=== PATIENT | male | born 1945 | race Caucasian/White ===

== ENCOUNTER 2020-08-02 10:06 | Inpatient (IN) | payer MEDICARE ==
[~2020-08-02] VITALS: Ht 167.6 cm; Wt 70.3 kg
--- NOTE | 2020-08-02 10:30 | NUR ---
pt sent here from his ortho appt this morning. his left leg +4 none pitting edema to his toes. pt stated this started 2wks ago and he has had u/s, mri and other tests completed but no one knows what is going on. pt's leg is warm/hot to touch in various places with a healing abraison and burn. pt stated that he got these after his leg started swelling. pt stated this has never happened before.
[2020-08-02 11:19] VITALS: BP 106/44
[2020-08-02 11:39] LABS: BASOPHILS % (AUTO) 0.8 % (0.0-2.0); EOSINOPHILS % (AUTO) 0.7 % (0.0-3.0); HEMATOCRIT 32.4 % (42.0-52.0); HEMOGLOBIN 9.8 G/DL (14.2-18.0); LYMPHOCYTES % (AUTO) 3.6 % (20.0-45.0); MEAN CORPUSCULAR VOLUME 106 FL (80-99); MONOCYTES % (AUTO) 14.7 % (1.0-10.0); NEUTROPHILS % (AUTO) 80.1 % (45.0-75.0); PLATELET COUNT 384 K/UL (150-450); RED BLOOD COUNT 3.05 M/UL (4.70-6.10); RED CELL DISTRIBUTION WIDTH 15.1 % (11.6-14.8); WHITE BLOOD COUNT 9.5 K/UL (4.8-10.8)
[2020-08-02] MEDS ORDERED: Vancomycin 1 GM in NS 275 ML IVPB ONE (11:45)
[2020-08-02] MEDS ORDERED: Cefepime HCl 2 GM in D5W 55 ML IVPB ONE (11:45)
[2020-08-02 11:52] LABS: ANION GAP 7 mmol/L (5-15); BLOOD UREA NITROGEN 15 mg/dL (7-18); CALCIUM 9.4 MG/DL (8.5-10.1); CARBON DIOXIDE 30 MMOL/L (21-32); CHLORIDE 105 MMOL/L (98-107); CREATININE 0.9 MG/DL (0.55-1.30); POTASSIUM 4.5 MMOL/L (3.5-5.1); SODIUM 142 MMOL/L (136-145)
[2020-08-02] MEDS ORDERED: amicar (11:54)
[2020-08-02] MEDS ORDERED: ZINC50 M2 ORAL (11:54)
[2020-08-02] MEDS ORDERED: ASCORBIC ACID500 MG ORAL (11:54)
[2020-08-02] MEDS ORDERED: CYMBALTA30 MG ORAL (11:54)
[2020-08-02] MEDS ORDERED: HYDROCODON-ACE1 EA19 PO (11:54)
[2020-08-02] MEDS ORDERED: ALPHA LIPOIC A300 MG PO (11:54)
[2020-08-02] MEDS ORDERED: METHYLPREDNISOLONE (11:54)
[2020-08-02 12:03] LABS: ALANINE AMINOTRANSFERASE 16 U/L (12-78); ALBUMIN 2.2 G/DL (3.4-5.0); ALBUMIN/GLOBULIN RATIO 0.7 (1.0-2.7); ALKALINE PHOSPHATASE 64 U/L (46-116); ASPARTATE AMINO TRANSFERASE 23 U/L (15-37); BILIRUBIN,TOTAL 0.6 MG/DL (0.2-1.0)
--- NOTE | 2020-08-02 12:36 | Emergency Room Report ---
History of Present Illness General Chief Complaint: Edema Source: Patient Present Illness HPI Disclaimer: Please note that this report is being documented using [employer] technology. This can lead to erroneous entry secondary to incorrect interpretation by the dictating instrument. HPI: 75-year-old male history of HHT, lymphoma, presents for left lower extremity pain and swelling. He states this has been gradually worsening over the past 2 weeks. He was initially treated for gout, but it did not improve, he then had an ultrasound which ruled out DVT, this week he had an MRI of his leg. The result is unknown however he was seen by orthopedics today who suspected cellulitis and sent patient to the ER. Patient denies any fever. Does express left lower extremity pain that is worse with movement and palpation. No history of cellulitis. 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 Patient History Reviewed Nursing Documentation: PMH: Agreed; PSxH: Agreed Nursing Documentation-PMH Past Medical History: No History, Except For Hx COPD: No - AVM Hx Cancer: Yes - non-hodgking lymphoma Hx Dialysis: No - weak bladder Review of Systems All Other Systems: negative except mentioned in HPI Physical Exam Vital Signs Date Time Temp Pulse Resp B/P (MAP) Pulse Ox O2 Delivery O2 Flow Rate FiO2 08/02/20 10:28 99.7 106 23 106/44 (64) 98 Sp02 EP Interpretation: reviewed, normal General Appearance: well appearing, no apparent distress Head: normocephalic, atraumatic Eyes: bilateral eye PERRL, bilateral eye EOMI ENT: hearing grossly normal, moist mucus membranes Neck: full range of motion, supple Respiratory: lungs clear, normal breath sounds, no rhonchi, no respiratory distress, no retraction, no wheezing Cardiovascular #1: normal peripheral pulses, regular rate, rhythm, no murmur Gastrointestinal: non tender, soft, non-distended, no guarding Musculoskeletal: other - Left lower extremity swollen, erythematous up to the thigh, warm, 2+ pulses palpated bilaterally. Neurologic: alert, oriented x3, no focal defects Skin: normal color, warm/dry Medical Decision Making Diagnostic Impression: Primary Impression: Cellulitis of leg, left ER Course MDM: Patient presented for cellulitis of the left lower extremity. Less likely DVT as he had a negative ultrasound this week. In the ER he was given broad- spectrum antibiotics. Will require admission to the medical floor. Family was updated. Clinical course-IV, cardiac monitoring pulse oximetry. IV antibiotics given. Laboratory studies were sent. Patient was arranged for admission to the medical floor. Labs - Laboratory Tests Test 08/02/20 11:00 White Blood Count 9.5 K/UL (4.8-10.8) Red Blood Count 3.05 M/UL (4.70-6.10) L Hemoglobin 9.8 G/DL (14.2-18.0) L Hematocrit 32.4 % (42.0-52.0) L Mean Corpuscular Volume 106 FL (80-99) H Mean Corpuscular Hemoglobin 32.2 PG (27.0-31.0) H Mean Corpuscular Hemoglobin Concent 30.3 G/DL (32.0-36.0) L Red Cell Distribution Width 15.1 % (11.6-14.8) H Platelet Count 384 K/UL (150-450) Mean Platelet Volume 7.0 FL (6.5-10.1) Neutrophils (%) (Auto) 80.1 % (45.0-75.0) H Lymphocytes (%) (Auto) 3.6 % (20.0-45.0) L Monocytes (%) (Auto) 14.7 % (1.0-10.0) H Eosinophils (%) (Auto) 0.7 % (0.0-3.0) Basophils (%) (Auto) 0.8 % (0.0-2.0) Sodium Level 142 MMOL/L (136-145) Potassium Level 4.5 MMOL/L (3.5-5.1) Chloride Level 105 MMOL/L (98-107) Carbon Dioxide Level 30 MMOL/L (21-32) Anion Gap 7 mmol/L (5-15) Blood Urea Nitrogen 15 mg/dL (7-18) Creatinine 0.9 MG/DL (0.55-1.30) Estimated Glomerular Filtration Rate > 60 mL/min (>60) Glucose Level 121 MG/DL (74-106) H Lactic Acid Level 1.30 mmol/L (0.4-2.0) Calcium Level 9.4 MG/DL (8.5-10.1) Total Bilirubin 0.6 MG/DL (0.2-1.0) Aspartate Amino Transferase (AST) 23 U/L (15-37) Alanine Aminotransferase (ALT) 16 U/L (12-78) Alkaline Phosphatase 64 U/L (46-116) Troponin I 0.006 ng/mL (0.000-0.056) Pro-B-Type Natriuretic Peptide 761 pg/mL (0-125) H Total Protein 5.5 G/DL (6.4-8.2) L Albumin 2.2 G/DL (3.4-5.0) L Globulin 3.3 g/dL Albumin/Globulin Ratio 0.7 (1.0-2.7) L EKG Diagnostic Results Rate: normal Rhythm: NSR ST Segments: no acute changes Chest X-Ray Diagnostic Results Chest X-Ray Diagnostic Results : Chest X-Ray Ordered: Yes # of Views/Limited/Complete: 1 View Indication: Shortness of Breath EP Interpretation: Yes Interpretation: no consolidation, no effusion, no pneumothorax Impression: No acute disease Electronically Signed by: Miko Ragland MD Last Vital Signs Date Time Temp Pulse Resp B/P (MAP) Pulse Ox O2 Delivery O2 Flow Rate FiO2 08/02/20 11:19 99.7 23 106/44 98 08/02/20 11:16 106 Disposition: ADMITTED INPATIENT Condition: Serious Referrals: NON PHYSICIAN (PCP) Miko Ragland M.D. Aug 02, 2020 12:36
--- NOTE | 2020-08-02 12:54 | Diagnostic Imaging Report ---
Procedure: XRAY Chest 1v Reason for study: Reason For Exam: SOB Comparison films: None. FINDINGS: A single one view chest is obtained. Vascularity is normal. The lung arredondo are clear bilaterally. Cardiac and mediastinal silhouette are within normal limits. CP angles are sharp. Some surgical clips noted in the lower neck/thoracic inlet region. IMPRESSION: NO ACUTE CARDIOPULMONARY DISEASE.
[2020-08-02 13:12] VITALS: BP 109/51
--- NOTE | 2020-08-02 14:22 | NUR ---
ED Nurse Note:pt eating lunch in no noted distress sitting up on the side of the bed.
--- NOTE | 2020-08-02 14:22 | NUR ---
ED Nurse Note:wheeled pt to the bathroom, pt tolerated with x1 assist
--- NOTE | 2020-08-02 15:03 | NUR ---
ER DISCHARGE NOTE: pt being transported to his room via wheelchair with his belongings and belongings sheet.
--- NOTE | 2020-08-02 15:10 | NUR ---
NURSE NOTES: Patient was admitted to room 408-1 via rney. Pt a/o x 4. No SOB noted. Left leg was swollen. Lt AC IV access is patent. Unit orientation was given. Provided call light. Bed in lowest position, call light within reach. Will continue to monitor.
[2020-08-02 15:40] VITALS: BP 97/63
--- NOTE | 2020-08-02 17:32 | History & Physical ---
History and Physical History & Physicial job# [id number] Martir Ross MD Aug 02, 2020 17:32
--- NOTE | 2020-08-02 17:55 | NUR ---
NURSE NOTES: Dr. Ross ordered admission order. 1. Full code 2. Regular diet 3. Rocephin 1gm q24 IVPB start tomorrow 4. Vanco per pharmacy 5. Heparin 5000 units q12 SQ 6. Zolpidem 5mg QHS PRN for insomnia 7. Tylenol 650mg Q6 PRN for headache and fever >100.5 8. Zofran 4mg IV q4 prn for N/V 9. CBC, CMP, Mg, Phos tomorrow morning 9. It is okay to do self catheterization after bladder scan done Order read back and will put it in.
[2020-08-02] MEDS ORDERED: Zolpidem 5mg tab ORAL PRN (18:00)
--- NOTE | 2020-08-02 18:58 | NUR ---
NURSE HAND-OFF: Important Events on Shift: Admission from ER for swollen left leg Patient Status: stable Diet: regular Pending Orders: n/a Pending Results/Labs:n/a Pending MD notification:n/a Latest Vital Signs: Temperature 97.1 , Pulse 90 , B/P 97 /63 , Respiratory Rate 20 , O2 SAT 98 , , O2 Flow Rate . Vital Sign Comment: stable Latest Go Fall Score: 45 Fall Risk: High Risk Safety Measures: Call light Within Reach, Bed Alarm Zone 2, Side Rails Side Rails x2, Bed position Low and Locked. Fall Precautions: Report given to DEWAYNE Lara.
--- NOTE | 2020-08-02 19:34 | NUR ---
NURSE NOTES: Dr. Ross ordered continue alpha lipoic acid, ascorbic acid, cymbalta, norco, zinc but we do not carry alpha lipoic acid and zinc. Dr. Ross ordered d/c alpha lipoic acid and zinc and norco 7.5/325 Q6 PRN for pain. Noted and carried out.
--- NOTE | 2020-08-02 19:44 | NUR ---
NURSE NOTES: received report from bhavesh gustafson rn. patient on bed, awake and verbally responsive. denies any pain or discomfort. on room air, no sob. iv access on the left ac,saline lock. per bhavesh gustafson" there is an order for self catheterization after bladder scan to be done". straight cath on the bedside. reiterated to call and ask for assistance to prevent fall or injury. noted with swelling and redness on the left lower extremity to the toes, warm to touch. call light and light button within easy reach. bed locked and in lowest position. will continue plan of care.
[2020-08-02 20:00] VITALS: BP 124/68
[2020-08-02] MEDS: Heparin 5000 units/ml inj SUBQ SCH (21:00)
[2020-08-02] MEDS: Vancomycin 1gm/D5W 275ml IVPB SCH ×2 (21:00)
--- NOTE | 2020-08-02 21:00 | NUR ---
NURSE NOTES: patient had episode of nose bleed that lasts for 2 mins. instructed patient to not blow his nose or sneeze. ice pack provided. interventions effective. charge nurse made aware. dr. wilkins is aware with no new orders.
--- NOTE | 2020-08-02 21:00 | NUR ---
NURSE NOTES: bladder scan done with 520 ml of urine. assisted patient with self catheterization. 520 ml out.
[2020-08-02] MEDS: HYDROcodone/Acetamin 7.5/325 tab ORAL PRN (21:33)
--- NOTE | 2020-08-02 22:40 | NUR ---
NURSE NOTES: CAME AND EVALUATED THE PATIENT. RECEIVED ORDERS. NOTED AND CARRIED OUT.
[2020-08-02] MEDS ORDERED: Omnipaque-300 100ml vial INJ PRN (23:00)
[2020-08-03] VITALS: BP 132/71
[2020-08-03] MEDS: HYDROcodone/Acetamin 7.5/325 tab ORAL PRN ×3 (03:37→21:44)
[2020-08-03 04:00] VITALS: BP 104/62
[2020-08-03] MEDS: cefTRIAXone 1 GM in D5W 55 ML IVPB SCH (05:28)
[2020-08-03 06:41] LABS: HEMATOCRIT 28.6 % (42.0-52.0); HEMOGLOBIN 8.9 G/DL (14.2-18.0); MEAN CORPUSCULAR VOLUME 105 FL (80-99); PLATELET COUNT 363 K/UL (150-450); RED BLOOD COUNT 2.73 M/UL (4.70-6.10); RED CELL DISTRIBUTION WIDTH 14.7 % (11.6-14.8); WHITE BLOOD COUNT 5.9 K/UL (4.8-10.8)
--- NOTE | 2020-08-03 06:45 | NUR ---
Important Events on Shift: EPISODE OF NOSEBLEED LASTED 2 MINS(DR. TEIXEIRA IS AWARE, NNO). SELF CATHETERIZATION DONE AT 2100 AFTER BLADDER SCAN WITH 520ML Patient Status: STABLE Diet: NPO POST MIDNIGHT Pending Orders: CT ABD PELVIS WITH CONTRAST Pending Results/Labs:[] Pending MD notification:[] Latest Vital Signs: Temperature 98.4 , Pulse 82 , B/P 104 /62 , Respiratory Rate 20 , O2 SAT 98 , , O2 Flow Rate . Vital Sign Comment: [] Latest Go Fall Score: 45 Fall Risk: High Risk Safety Measures: Call light Within Reach, Bed Alarm Zone 1, Side Rails Side Rails x1, Bed position Low and Locked. Fall Precautions: Patient Fall Education Addendum: 08/03/20 at 0727 by Penny Montero RN report given to parth tran
[2020-08-03 07:06] LABS: ALANINE AMINOTRANSFERASE 13 U/L (12-78); ALBUMIN 1.9 G/DL (3.4-5.0); ALBUMIN/GLOBULIN RATIO 0.6 (1.0-2.7); ALKALINE PHOSPHATASE 54 U/L (46-116); ANION GAP 6 mmol/L (5-15); ASPARTATE AMINO TRANSFERASE 15 U/L (15-37); BILIRUBIN,TOTAL 0.6 MG/DL (0.2-1.0); BLOOD UREA NITROGEN 14 mg/dL (7-18); CALCIUM 8.8 MG/DL (8.5-10.1); CARBON DIOXIDE 29 MMOL/L (21-32); CHLORIDE 108 MMOL/L (98-107); CREATININE 0.9 MG/DL (0.55-1.30); PHOSPHORUS 3.5 MG/DL (2.5-4.9); POTASSIUM 4.2 MMOL/L (3.5-5.1); SODIUM 143 MMOL/L (136-145)
--- NOTE | 2020-08-03 07:15 | NUR ---
NURSE NOTES: Report received from Jane BUCHANAN, rounds made. Patient dangling at bedside. AOx4, calm, pleasant. Respirations even/unlabored on RA. Light residual nosebleed, patient using nose clip from home, will hold Heparin, will provide ice/monitor. Left knee/leg, warm/tight/edematous (+3 pitting), slightly pink surrounding knee/behind knee and calf, x1 scab, multiple scratches, able to move/wiggles, denies NT. RLE +2 pitting edema to pedal. Pain to LLE 5/10 at rest, 8/10 with standing, will medicate as ordered. NPO for CT abdomen/pelvis. LAC, intact, site asymptomatic, saline lock. Call light in reach, bed in lowest position, will continue to monitor.
--- NOTE | 2020-08-03 07:40 | Consultation ---
History of Present Illness General Date patient seen: Aug 03, 2020 Time patient seen: 09:15 Chief Complaint: Edema Referring physician: Dr. Ross Reason for Consultation: Cellulitis Present Illness HPI 75yo M who p/w LLE pain and swelling c/f cellulitis for which ID is consulted. Started his LLE pain/swelling has been worsening over past 2 wks. He was initially treated for gout, but it did not improve, he then had an ultrasound which ruled out DVT, this week he had an MRI of his leg. The result is unknown however he was seen by orthopedics who suspected cellulitis and sent patient to the ER. Patient denies any fever. Does express left lower extremity pain that is worse with movement and palpation. No history of cellulitis. Says he can't walk on his left leg. No allergies to abx PMH: Waldenstrom's B cell lymphoma HHT Allergies: Coded Allergies: No Known Allergies (Unverified , 08/02/20) Medication History Scheduled Alpha Lipoic Acid (Alpha Lipoic Acid), 600 MG PO BID, (Reported) Ascorbic Acid* (Ascorbic Acid*), 500 MG ORAL TWICE A DAY, (Reported) Duloxetine Hcl* (Cymbalta*), 20 MG ORAL BID, (Reported) Zinc Amino Acid Chelate (Zinc), 50 MG ORAL BID, (Reported) Miscellaneous Medications Hydrocodone Bit/Acetaminophen (Hydrocodon-Acetaminoph 7.5-300), 1 EACH PO, (Reported) [amicar], (Reported) [medrol 24mg], (Reported) Patient History Healthcare decision maker Resuscitation status Advanced Directive on File Review of Systems ROS Narrative 10-point ROS neg except as noted in HPI Physical Exam Neck: normal alignment Physical Exam Narrative Gen: NAD HEENT: NCAT Pulm: BL chest rise Abd: Non-distended Ext: RLE wnl, LLE diffusely swollen 2+ pitting edema to above knee, non-TTP, mild erythema, mild increased warmth, scattered skin lesions peeling skin Neuro: Awake, alert, interactive Last 24 Hour Vital Signs Date Time Temp Pulse Resp B/P (MAP) Pulse Ox O2 Delivery O2 Flow Rate FiO2 08/03/20 04:07 98.4 08/03/20 04:00 98.4 82 20 104/62 (76) 98 08/03/20 00:00 98.6 78 20 132/71 (91) 97 08/02/20 22:03 97.1 08/02/20 21:00 Room Air 08/02/20 20:00 99.2 98 20 124/68 (86) 98 08/02/20 15:40 97.1 90 20 97/63 (74) 98 08/02/20 15:16 Room Air 08/02/20 13:12 99.7 83 20 109/51 98 08/02/20 11:19 99.7 23 106/44 98 08/02/20 11:16 106 23 08/02/20 10:28 99.7 106 23 106/44 (64) 98 Intake and Output 08/02/20 08/03/20 19:00 07:00 Intake Total 200 ml Balance 200 ml Intake Oral 200 ml # Voids 1 3 Laboratory Tests Test 08/02/20 11:00 08/03/20 06:11 White Blood Count 9.5 K/UL (4.8-10.8) 5.9 K/UL (4.8-10.8) Red Blood Count 3.05 M/UL (4.70-6.10) L 2.73 M/UL (4.70-6.10) L Hemoglobin 9.8 G/DL (14.2-18.0) L 8.9 G/DL (14.2-18.0) L Hematocrit 32.4 % (42.0-52.0) L 28.6 % (42.0-52.0) L Mean Corpuscular Volume 106 FL (80-99) H 105 FL (80-99) H Mean Corpuscular Hemoglobin 32.2 PG (27.0-31.0) H 32.7 PG (27.0-31.0) H Mean Corpuscular Hemoglobin Concent 30.3 G/DL (32.0-36.0) L 31.2 G/DL (32.0-36.0) L Red Cell Distribution Width 15.1 % (11.6-14.8) H 14.7 % (11.6-14.8) Platelet Count 384 K/UL (150-450) 363 K/UL (150-450) Mean Platelet Volume 7.0 FL (6.5-10.1) 6.5 FL (6.5-10.1) Neutrophils (%) (Auto) 80.1 % (45.0-75.0) H % (45.0-75.0) Lymphocytes (%) (Auto) 3.6 % (20.0-45.0) L % (20.0-45.0) Monocytes (%) (Auto) 14.7 % (1.0-10.0) H % (1.0-10.0) Eosinophils (%) (Auto) 0.7 % (0.0-3.0) % (0.0-3.0) Basophils (%) (Auto) 0.8 % (0.0-2.0) % (0.0-2.0) Sodium Level 142 MMOL/L (136-145) 143 MMOL/L (136-145) Potassium Level 4.5 MMOL/L (3.5-5.1) 4.2 MMOL/L (3.5-5.1) Chloride Level 105 MMOL/L (98-107) 108 MMOL/L (98-107) H Carbon Dioxide Level 30 MMOL/L (21-32) 29 MMOL/L (21-32) Anion Gap 7 mmol/L (5-15) 6 mmol/L (5-15) Blood Urea Nitrogen 15 mg/dL (7-18) 14 mg/dL (7-18) Creatinine 0.9 MG/DL (0.55-1.30) 0.9 MG/DL (0.55-1.30) Estimat Glomerular Filtration Rate > 60 mL/min (>60) > 60 mL/min (>60) Glucose Level 121 MG/DL (74-106) H 80 MG/DL (74-106) Lactic Acid Level 1.30 mmol/L (0.4-2.0) Calcium Level 9.4 MG/DL (8.5-10.1) 8.8 MG/DL (8.5-10.1) Total Bilirubin 0.6 MG/DL (0.2-1.0) 0.6 MG/DL (0.2-1.0) Aspartate Amino Transf (AST/SGOT) 23 U/L (15-37) 15 U/L (15-37) Alanine Aminotransferase (ALT/SGPT) 16 U/L (12-78) 13 U/L (12-78) Alkaline Phosphatase 64 U/L (46-116) 54 U/L (46-116) Troponin I 0.006 ng/mL (0.000-0.056) Pro-B-Type Natriuretic Peptide 761 pg/mL (0-125) H Total Protein 5.5 G/DL (6.4-8.2) L 4.9 G/DL (6.4-8.2) L Albumin 2.2 G/DL (3.4-5.0) L 1.9 G/DL (3.4-5.0) L Globulin 3.3 g/dL 3.0 g/dL Albumin/Globulin Ratio 0.7 (1.0-2.7) L 0.6 (1.0-2.7) L Neutrophils % (Manual) Pending Lymphocytes % (Manual) Pending Platelet Estimate Pending Platelet Morphology Pending Phosphorus Level 3.5 MG/DL (2.5-4.9) Magnesium Level 2.2 MG/DL (1.8-2.4) Height (Feet): 5 Height (Inches): 6.00 Weight (Pounds): 155 Medications Current Medications Medications (Trade) Dose Ordered Sig/Angelique Route PRN Reason Start Time Stop Time Status Last Admin Dose Admin Acetaminophen (Tylenol) 650 mg Q6H PRN ORAL For Headache 08/02/20 18:00 09/01/20 17:59 Acetaminophen (Tylenol) 650 mg Q6H PRN ORAL Temp >100.5 08/02/20 18:00 09/01/20 17:59 Acetaminophen/ Hydrocodone Bitart (Pine 7.5/325) 1 tab Q6H PRN ORAL For Pain 08/02/20 19:45 08/09/20 19:44 08/03/20 03:37 Ascorbic Acid (Vitamin C) 500 mg TWICE A DAY ORAL 08/03/20 09:00 09/02/20 08:59 Barium Sulfate (Readi-Cat 2) 450 ml NOW PRN ORAL Radiology Procedure 08/02/20 23:00 08/04/20 22:59 Ceftriaxone Sodium 1 gm/ Dextrose 55 ml @ 110 mls/hr Q24H IVPB 08/03/20 06:00 08/10/20 05:59 08/03/20 05:28 Duloxetine HCl (Cymbalta) 20 mg BID ORAL 08/03/20 09:00 11/01/20 08:59 Heparin Sodium (Porcine) (Heparin 5000 units/ml) 5,000 units EVERY 12 HOURS SUBQ 08/02/20 21:00 09/16/20 20:59 Iohexol (OMNIPAQUE-300 100ml) 100 ml NOW PRN INJ Radiology Procedure 08/02/20 23:00 08/04/20 22:59 Ondansetron HCl (Zofran) 4 mg Q4H PRN IVP Nausea & Vomiting 08/02/20 18:00 09/01/20 17:59 Vancomycin HCl (Vanco pharmacy to dose) 1 ea DAILY PRN MISC Per rx protocol 08/02/20 18:00 09/01/20 17:59 Vancomycin HCl 1 gm/Dextrose 275 ml @ 183.708 mls/hr Q12HR IVPB 08/02/20 21:00 08/07/20 20:59 08/02/20 21:00 Zolpidem Tartrate (Ambien) 5 mg HSPRN PRN ORAL Insomnia 08/02/20 18:00 08/09/20 17:59 Assessment/Plan Assessment/Plan: 75yo M with: Afebrile Normal WBC LLE cellulitis, diffuse swelling 08/02 BCx p BLE US to r/o DVT p R/o COVID, no resp cx 08/02 CXR: No acute process Cr 0.9 PMH: Waldenstrom's B cell lymphoma HHT Plan: Cont CTX/vanco empiric #2 for now Elevate LLE on 2-3 pillows to help w/ drainage of edema Trend LLE exam F/u BLE US to r/o clot F/u BCx Monitor CBC/CMP Monitor temp curve, hemodynamics Monitor resp status D/w RN Thank you for this consult. [facility] will continue to follow. Kathleen Dunaway M.D. Aug 03, 2020 07:40
[2020-08-03 08:00] VITALS: BP 139/79
[2020-08-03] MEDS: Heparin 5000 units/ml inj SUBQ SCH ×2 (08:18→21:00)
--- NOTE | 2020-08-03 08:29 | History and Physical Report ---
DATE OF ADMISSION: 08/02/2020 CHIEF COMPLAINT: Left leg swollen and redness. HISTORY OF PRESENT ILLNESS: This 75-year-old very delightful gentleman with past medical history significant for history of COPD, non-Hodgkin lymphoma with bladder urinary hesitancy requiring frequent catheterization, who presented to the emergency department complaining about the left lower extremity redness and swollen. The patient complained about swelling, erythema, and redness for past two weeks. The patient initially was treated for gout with no improvement. He had a duplex of lower extremity for DVT was essentially unremarkable and the patient had MRI of the leg done, also was unremarkable as per history. He was seen by Orthopedics today and suspected cellulitis and subsequently the patient was referred to the emergency room. The patient denies any fever, chills, nausea, vomiting, or diarrhea, complained about the leg pain worsening with ambulation and palpation. The patient denies any prior history of infection or surgical intervention on the left leg. Shortly after initial evaluation in the emergency department, the patient was admitted to the hospital with left leg cellulitis. PAST MEDICAL HISTORY/PAST SURGICAL HISTORY: As above, history of hereditary hemorrhagic telangiectasia (AV Malformation) , non-Hodgkin lymphoma, and history of urine incontinence requires frequent catheterization. MEDICATIONS: At home, please refer to medication reconciliation. ALLERGIES: No known drug allergies. SOCIAL HISTORY: Denies any smoking, alcohol, or drugs. FAMILY HISTORY: Noncontributory. REVIEW OF SYSTEMS: Mostly as above. Denies any dysuria, frequency, or hematuria. Complained about urine hesitancy. Denies any hemoptysis or hematochezia. Denies any bright red blood per rectum. Complained about nosebleeds occasionally. Denies any loss of consciousness. Denies any fall or head trauma. PHYSICAL EXAMINATION: VITAL SIGNS: On admission, temperature 99.7, pulse of 106, respirations 23, blood pressure 106/44. GENERAL: The patient is awake and responsive, in no acute distress. HEAD AND NECK: Pupils are equal and reactive to light. Extraocular movements are intact. Neck was supple. No JVD. LUNGS: Good air entry with no wheezing or rales. HEART: S1, S2. Regular rhythm. Systolic ejection murmur was noted in the left sternal border. ABDOMEN: Soft, nondistended, and nontender. Positive bowel sounds. EXTREMITIES: No cyanosis or clubbing. Left lower extremity has +3 edema and erythema up to the level of the thigh area. Warm to touch. Palpable pulse was identified. NEUROLOGIC: Cranial nerves II through XII were grossly normal. Motor is 5/5 in all extremities. Gait was not assessed. RECTAL/GENITOURINARY: Refused and deferred. PSYCHIATRIC: Mood and affect is intact. LABORATORY DATA: On admission from the emergency department, sodium 142, potassium is 4.5, chloride 105, bicarb 30, BUN 15, creatinine 0.9, GFR greater than 60. Glucose is 121. Calcium is 9.4. Total bilirubin of 0.6, AST of 23, ALT of 16. Troponin 0.06. ProBNP 761. Total protein is 5.5. WBC of 9.5, hemoglobin of 9.8, hematocrit 32, platelets 384,000. The patient had a chest x-ray, no acute cardiopulmonary disease. ASSESSMENT: 1. Left lower extremity cellulitis. 2. Non-Hodgkin lymphoma. 3. Hereditary hemorrhagic telangiectasia (AV Malformation) 4. History of urinary retention requiring frequent catheterization. 5. Cardiac murmur. PLAN: Admit the patient to the medical floor. We will follow up with the laboratory, cultures. Code status is Full Code. DVT prophylaxis, heparin subcutaneous. Discussed case with Dr. Erasmo Segura from Infectious Disease. Start the patient on broad-spectrum antibiotic with Rocephin and vancomycin. Consider a CT scan of the abdomen and pelvis in order to rule out obstruction of the vasculature to the left lower extremity. Resume home medication. Martir Ross M.D. DR: ADAMARIS JOB#: [id number] CC: RAY
--- NOTE | 2020-08-03 09:30 | NUR ---
CASE MANAGEMENT:REVIEW 75YR OLD MALE PRESENTED TO ER CC: BLE EDEMA X13 DAYS SI: LEG CELLULITIS 99.6 106 23 106/44 98% ON RA H/H-9.8/32.4 IS: IV VANCOMYCIN X1 IV CEFEPIME X1 BLOOD CX CHEST XRAY : TO MED/SURG 4EAST
[2020-08-03] MEDS: Ascorbic Acid 500mg tab ORAL SCH ×2 (09:43→17:09)
[2020-08-03] MEDS: Vancomycin 1gm/D5W 275ml IVPB SCH ×4 (09:44→21:00)
--- NOTE | 2020-08-03 10:00 | NUR ---
NURSE NOTES: Bladder scan 722 ml, straight cath using 18 FR, 725 ml out, meghna/clear.
--- NOTE | 2020-08-03 10:32 | Diagnostic Imaging Report ---
Indication: Reason For Exam: ABD PAIN Technique: Grayscale and duplex images of the bilateral lower extremity veins Comparison: Findings: Bilaterally, grayscale and duplex images demonstrate no evidence of intraluminal thrombus. Normal phasic Doppler waveforms, demonstrating normal augmentation response and no evidence of valvular insufficiency. Greater saphenous vein(s) and tibial veins are patent. Normal compressibility. Incidentally noted is a small left knee effusion. A small complicated cyst, probably a popliteal cyst, is seen in the left popliteal fossa. This measures 3.9 x 1.7 cm. Impression: Negative for evidence of lower extremity deep venous thrombosis bilaterally Incidental finding of left knee joint effusion and small complicated popliteal cyst
--- NOTE | 2020-08-03 11:10 | NUR ---
NURSE NOTES: VD negative, bakers cyst noted, Dr. Ross notified of results, no further orders.
--- NOTE | 2020-08-03 11:15 | NUR ---
PT EVALUATION NOTE Patient seen for initial evaluation and treatment initiated. Patient presents with LLE pain and swelling which impairs patient's ability to perform mobility skills safely. Patient able to perform bed mobility tasks and transfers with SBA, used FWW for transfers. Patient able to ambulate 30 ft with SBA/CGA and FWW. Patient slightly unsteady during transfers and ambulation however no loss of balance. Patient with tendency to bear weight on L forefoot at initial contact with incomplete extension of L knee during throughout stance phase. Ambulation endurance limited by pain LLE with WB. Patient will benefit from skilled inpatient PT intervention to increase strength and postural stability for improved level of functional mobility, safety and activity tolerance. Recommend discharge to SNF for continued rehab once medically cleared by MD as patient lives alone in a 2 story house. Addendum: 08/03/20 at 1319 by SHAYY FELIZ PT Amended: Links added.
[2020-08-03 12:00] VITALS: BP 117/50
--- NOTE | 2020-08-03 14:50 | Diagnostic Imaging Report ---
Clinical Indication: Abdominal pain on the left lower extremity edema Technique: Patient given oral contrast. IV administration nonionic contrast. Venous phase spiral acquisition obtained through the abdomen and pelvis. Multiplanar reconstructions were generated. Total dose length product 248 mGycm. CTDIvol(s) 5 mGy. Dose reduction achieved using automated exposure control Comparison: none Findings: The rectum is mildly distended with feces. What is probably a normal appendix is visualized. No small bowel distention or small bowel wall thickening. Ingested contrast reaches the proximal ascending colon. No free or loculated intraperitoneal gas or fluid is evident. The distal esophagus demonstrates a small hiatal hernia. The liver demonstrates slight surface nodularity. The common and proper hepatic artery is unusually ectatic. The liver demonstrates a few subcentimeter low-attenuation lesions which are too small to characterize. The pancreas, spleen, adrenals are unremarkable. The kidneys demonstrate bilateral cysts. The right kidney demonstrates a 4 mm calculus in an interpolar region calyx. The left kidney demonstrates an intermediate attenuation mass in the anterior upper pole which measures 18 mm in diameter. It demonstrates a few parapelvic cysts. It demonstrates one or more subcentimeter low-attenuation lesions which are too small to characterize as well. No retroperitoneal or mesenteric mass or adenopathy. There is unusual mural calcification extending into the lumen in the upstream inferior vena cava extending into the left common iliac vein. The bladder demonstrates marked wall thickening and trabeculation. No pelvic mass or adenopathy. There is mild edema of the bilateral flank subcutaneous fat. The included lung bases demonstrate posterior atelectatic changes. The bones demonstrate degenerative spondylosis changes. Impression: Soft tissue attenuation 18 mm mass in the left kidney. Although possibly a complicated cyst, neoplasm also possible. Sonography may be useful to clarify. Mild rectal distention with feces. Impaction possible. Correlate with clinical findings Slight hepatic surface nodularity, raises concern for cirrhosis. Unusual finding of very ectatic hepatic artery raises concern for portal hypertension. Unusual mural calcification in the upstream inferior vena cava extending into the left common iliac vein. Significance/etiology uncertain, could represent calcified chronic thrombus or possibly a calcified fibrin sheath is there is been a catheter at this location in the past Marked bladder wall thickening and trabeculation, likely chronic bladder outlet obstruction Mild edema of the bilateral flank subcutaneous fat Nonobstructive right renal calyceal calculus Other findings as noted, including subcentimeter probable liver cysts, small hiatal hernia,, bilateral renal cysts and too small to characterize subcentimeter low-attenuation lesions, left renal parapelvic cysts, degenerative spondylosis, basilar pulmonary atelectasis Findings discussed by phone with Dr. Ross at the time of interpretation The CT scanner at [facility] is accredited by the [employer] and the scans are performed using protocols designed to limit radiation exposure to as low as reasonably achievable to attain images of sufficient resolution adequate for diagnostic evaluation.
--- NOTE | 2020-08-03 15:52 | Internal Med Progress Note ---
Subjective Physician Name Martir Ross Attending Physician Martir Ross MD Current Medications Medications (Trade) Dose Ordered Sig/Angelique Route PRN Reason Start Time Stop Time Status Last Admin Dose Admin Acetaminophen (Tylenol) 650 mg Q6H PRN ORAL For Headache 08/02/20 18:00 09/01/20 17:59 Acetaminophen (Tylenol) 650 mg Q6H PRN ORAL Temp >100.5 08/02/20 18:00 09/01/20 17:59 Acetaminophen/ Hydrocodone Bitart ([place] 7.5/325) 1 tab Q6H PRN ORAL For Pain 08/02/20 19:45 08/09/20 19:44 08/03/20 12:06 Ascorbic Acid (Vitamin C) 500 mg TWICE A DAY ORAL 08/03/20 09:00 09/02/20 08:59 08/03/20 09:43 Barium Sulfate (Readi-Cat 2) 450 ml NOW PRN ORAL Radiology Procedure 08/02/20 23:00 08/04/20 22:59 Ceftriaxone Sodium 1 gm/ Dextrose 55 ml @ 110 mls/hr Q24H IVPB 08/03/20 06:00 08/10/20 05:59 08/03/20 05:28 Duloxetine HCl (Cymbalta) 20 mg BID ORAL 08/03/20 09:00 11/01/20 08:59 08/03/20 09:43 Heparin Sodium (Porcine) (Heparin 5000 units/ml) 5,000 units EVERY 12 HOURS SUBQ 08/02/20 21:00 09/16/20 20:59 Iohexol (OMNIPAQUE-300 100ml) 100 ml NOW PRN INJ Radiology Procedure 08/02/20 23:00 08/04/20 22:59 Ondansetron HCl (Zofran) 4 mg Q4H PRN IVP Nausea & Vomiting 08/02/20 18:00 09/01/20 17:59 Vancomycin HCl (Vanco pharmacy to dose) 1 ea DAILY PRN MISC Per rx protocol 08/02/20 18:00 09/01/20 17:59 Vancomycin HCl 1 gm/Dextrose 275 ml @ 183.708 mls/hr Q12HR IVPB 08/02/20 21:00 08/07/20 20:59 08/03/20 09:44 Zolpidem Tartrate (Ambien) 5 mg HSPRN PRN ORAL Insomnia 08/02/20 18:00 08/09/20 17:59 Allergies: Coded Allergies: No Known Allergies (Unverified , 08/02/20) Subjective awake, alert, responsive, denies any chest pain or shortness of breath. Objective Last Vital Signs Date Time Temp Pulse Resp B/P (MAP) Pulse Ox O2 Delivery O2 Flow Rate FiO2 08/03/20 08:00 97.9 83 18 139/79 (99) 99 08/02/20 21:00 Room Air Laboratory Tests Test 08/03/20 06:11 White Blood Count 5.9 K/UL (4.8-10.8) Red Blood Count 2.73 M/UL (4.70-6.10) L Hemoglobin 8.9 G/DL (14.2-18.0) L Hematocrit 28.6 % (42.0-52.0) L Mean Corpuscular Volume 105 FL (80-99) H Mean Corpuscular Hemoglobin 32.7 PG (27.0-31.0) H Mean Corpuscular Hemoglobin Concent 31.2 G/DL (32.0-36.0) L Red Cell Distribution Width 14.7 % (11.6-14.8) Platelet Count 363 K/UL (150-450) Mean Platelet Volume 6.5 FL (6.5-10.1) Neutrophils (%) (Auto) % (45.0-75.0) Lymphocytes (%) (Auto) % (20.0-45.0) Monocytes (%) (Auto) % (1.0-10.0) Eosinophils (%) (Auto) % (0.0-3.0) Basophils (%) (Auto) % (0.0-2.0) Differential Total Cells Counted 100 Neutrophils % (Manual) 67 % (45-75) Lymphocytes % (Manual) 13 % (20-45) L Monocytes % (Manual) 18 % (1-10) H Eosinophils % (Manual) 2 % (0-3) Basophils % (Manual) 0 % (0-2) Band Neutrophils 0 % (0-8) Platelet Estimate Adequate Platelet Morphology Normal Hypochromasia 1+ Anisocytosis 1+ Macrocytosis 1+ Sodium Level 143 MMOL/L (136-145) Potassium Level 4.2 MMOL/L (3.5-5.1) Chloride Level 108 MMOL/L (98-107) H Carbon Dioxide Level 29 MMOL/L (21-32) Anion Gap 6 mmol/L (5-15) Blood Urea Nitrogen 14 mg/dL (7-18) Creatinine 0.9 MG/DL (0.55-1.30) Estimat Glomerular Filtration Rate > 60 mL/min (>60) Glucose Level 80 MG/DL (74-106) Calcium Level 8.8 MG/DL (8.5-10.1) Phosphorus Level 3.5 MG/DL (2.5-4.9) Magnesium Level 2.2 MG/DL (1.8-2.4) Total Bilirubin 0.6 MG/DL (0.2-1.0) Aspartate Amino Transf (AST/SGOT) 15 U/L (15-37) Alanine Aminotransferase (ALT/SGPT) 13 U/L (12-78) Alkaline Phosphatase 54 U/L (46-116) Total Protein 4.9 G/DL (6.4-8.2) L Albumin 1.9 G/DL (3.4-5.0) L Globulin 3.0 g/dL Albumin/Globulin Ratio 0.6 (1.0-2.7) L Intake and Output 08/02/20 08/03/20 19:00 07:00 Intake Total 200 ml Balance 200 ml Intake Oral 200 ml # Voids 1 3 Objective GENERAL: Awake and responsive, in no acute distress. HEAD AND NECK: Pupils are equal and reactive to light. Extraocular movements are intact. Neck was supple. No JVD. LUNGS: Good air entry with no wheezing or rales. HEART: S1, S2. Regular rhythm. Systolic ejection murmur was noted in the left sternal border. ABDOMEN: Soft, nondistended, and nontender. Positive bowel sounds. EXTREMITIES: No cyanosis or clubbing. Left lower extremity has +3 edema and less erythema . NEUROLOGIC: Cranial nerves II through XII were grossly normal. Motor is 5/5 in all extremities. Gait was not assessed. RECTAL/GENITOURINARY: Refused and deferred. PSYCHIATRIC: Mood and affect is intact. Assessment/Plan Assessment/Plan 1. Left lower extremity cellulitis. 2. Non-Hodgkin lymphoma. 3. Hereditary hemorrhagic telangiectasia (AV Malformation) 4. History of urinary retention / chronic bladder outlet obstruction requiring frequent catheterization. 5. Cardiac murmur. Plan: In medical floor. Follow up with the laboratory and cultures. Code status is Full Code. DVT prophylaxis, heparin subcutaneous. Dr. Erasmo Segura from Infectious Disease. Abx: Rocephin and vancomycin IV CT scan of the abdomen and pelvis Noted. discussed with the daughter extensively over the phone with regard to plan of care and therapy. Lasix 20mg IV X 1 dose Duplex of lower extremity: Negative for evidence of lower extremity deep venous thrombosis bilaterally Incidental finding of left knee joint effusion and small complicated popliteal cyst. CT scan of the abdomen and pelvic: Soft tissue attenuation 18 mm mass in the left kidney. Although possibly a complicated cyst, neoplasm also possible. Sonography may be useful to clarify. Mild rectal distention with feces. Impaction possible. Correlate with clinical findings Slight hepatic surface nodularity, raises concern for cirrhosis. Unusual finding of very ectatic hepatic artery raises concern for portal hypertension. Unusual mural calcification in the upstream inferior vena cava extending into the left common iliac vein. Significance/etiology uncertain, could represent calcified chronic thrombus or possibly a calcified fibrin sheath is there is been a catheter at this location in the past Marked bladder wall thickening and trabeculation, likely chronic bladder outlet obstruction Mild edema of the bilateral flank subcutaneous fat Nonobstructive right renal calyceal calculus Other findings as noted, including subcentimeter probable liver cysts, small hiatal hernia,, bilateral renal cysts and too small to characterize subcentimeter low-attenuation lesions, left renal parapelvic cysts, degenerative spondylosis, basilar pulmonary atelectasis Martir Ross MD Aug 03, 2020 15:52
[2020-08-03 16:00] VITALS: BP 105/57
--- NOTE | 2020-08-03 16:00 | NUR ---
NURSE NOTES: Patient reports he straight cath with another RN, without bladder scan prior, 375 ml, meghna clear output.
--- NOTE | 2020-08-03 19:30 | NUR ---
NURSE HAND-OFF: Important Events on Shift:2D echo done 0800, VD done 0830 (negative, bakers cyst noted), CT abd/pelvis with contrast done at 1130, PT eval, Lasix 20 mg IV x1, [place] 7.5 mg x1, Straight cath 18 FR x2, may need saline lock changed Patient Status: stable Diet: regular Pending Orders: none Pending Results/Labs:none Pending MD notification:none Latest Vital Signs: Temperature 98.3 , Pulse 78 , B/P 105 /57 , Respiratory Rate 18 , O2 SAT 95 , , O2 Flow Rate . Vital Sign Comment: none Latest Go Fall Score: 60 Fall Risk: High Risk Safety Measures: Call light Within Reach, Bed Alarm Zone 1, Side Rails Side Rails x2, Bed position Low and Locked. Fall Precautions: Yellow Socks Door Sign Patient Fall Education Report given to Balbir RN.
[2020-08-03 20:00] VITALS: BP 109/59
--- NOTE | 2020-08-03 20:00 | NUR ---
NURSE NOTES: Pt is awake and alert. No acute distress noted. Vitals stable. Room air. Pt is sitting at the edge of the bed. Pt is able to self-intubate for urine. Pt walked with PT per AM shift nurse. Pt has bilat LE edema, pt instructed to elevate legs on pillows. Fall precaution in place, bed alarm on, bed locked low in position,side rails up and call light within reach. Seizure precautions in place. Pt will be monitored.
--- NOTE | 2020-08-03 23:10 | NUR ---
NURSE NOTES: Pt has nosebleed, pt has a nose clip which he uses when he has nosebleed. Ice given to patient. Pt will be monitored.
[2020-08-04] VITALS: BP 94/57
--- NOTE | 2020-08-04 00:48 | NUR ---
NURSE NOTES: Nonbleeding stopped.Pt is in bed now.
[2020-08-04 04:00] VITALS: BP 99/46
[2020-08-04] MEDS: cefTRIAXone 1 GM in D5W 55 ML IVPB SCH (06:27)
--- NOTE | 2020-08-04 06:30 | NUR ---
NURSE NOTES: Pt is in bed, asleep. No acute distress noted.
--- NOTE | 2020-08-04 07:10 | NUR ---
NURSE HAND-OFF: Important Events on Shift:[Nosebleed] Patient Status: [Stable] Diet: [] Pending Orders: [] Pending Results/Labs:[] Pending MD notification:[] Latest Vital Signs: Temperature 98.3 , Pulse 82 , B/P 99 /46 , Respiratory Rate 20 , O2 SAT 96 , , O2 Flow Rate . Vital Sign Comment: [] Latest Go Fall Score: 60 Fall Risk: High Risk Safety Measures: Call light Within Reach, Bed Alarm Zone 1, Side Rails Side Rails x2, Bed position Low and Locked. Fall Precautions: Yellow Socks Door Sign Patient Fall Education Report given to [Jhonny Patel RN. informed to monitor patient for bleeding closely].
--- NOTE | 2020-08-04 07:51 | NUR ---
NURSE NOTES: RN received report from Cole. Pt is awake and alert. No acute distress noted. Vitals stable. Room air. Pt is sitting at the edge of the bed. Pt has bilat LE edema, pt instructed to elevate legs on pillows. Fall precaution in place, bed alarm on, bed locked low in position,side rails up and call light within reach. Seizure precautions in place. Pt will be monitored. Addendum: 08/04/20 at 1146 by Kobi Patel RN Report received from Balbir Galvan.
[2020-08-04 08:00] VITALS: BP 91/52
[2020-08-04] MEDS: Heparin 5000 units/ml inj SUBQ SCH (09:00)
[2020-08-04] MEDS: Ascorbic Acid 500mg tab ORAL SCH ×2 (09:11→17:51)
[2020-08-04] MEDS: Vancomycin 1gm/D5W 275ml IVPB SCH ×4 (09:12→21:00)
[2020-08-04 09:18] LABS: INR 1.2 (0.9-1.1)
[2020-08-04 09:26] LABS: ANION GAP 3 mmol/L (5-15); BLOOD UREA NITROGEN 14 mg/dL (7-18); CALCIUM 8.4 MG/DL (8.5-10.1); CARBON DIOXIDE 33 MMOL/L (21-32); CHLORIDE 106 MMOL/L (98-107); CREATININE 0.8 MG/DL (0.55-1.30); SODIUM 142 MMOL/L (136-145)
--- NOTE | 2020-08-04 10:30 | NUR ---
NURSE NOTES: Patient had nose bleed for about 30 min. RN provided with an ice pack to put on his nose.
[2020-08-04] MEDS: HYDROcodone/Acetamin 7.5/325 tab ORAL PRN (11:19)
[2020-08-04 12:00] VITALS: BP 105/54
--- NOTE | 2020-08-04 12:31 | NUR ---
NURSE NOTES: Patient had an episode of nose bleeding after trying to keep his legs elevated. He wants to see if he has AVM on his kidney and wants more tests but not kidney biopsy because of his bleeding disorder. Heparin was held this morning. RN notified Dr. Ross about the bleeding and running tests. No further orders at this time. Will continue to monitor.
--- NOTE | 2020-08-04 12:46 | NUR ---
NURSE NOTES: Dr. Cody price'ed heparin sq. RN verified and carried out the order.
--- NOTE | 2020-08-04 14:16 | NUR ---
NURSE NOTES: Patient wants to release his CT scan so that another doctor can read it. Dr. Ross approved.
--- NOTE | 2020-08-04 15:35 | NUR ---
PT Note Was advised by RN to hold off on physical therapy due to cont'd nose bleeding.
[2020-08-04 16:00] VITALS: BP 111/77
--- NOTE | 2020-08-04 19:27 | Internal Med Progress Note ---
Subjective Date of Service: Aug 04, 2020 Physician Name Sultana,Gustabo Attending Physician Martir Ross MD Current Medications Medications (Trade) Dose Ordered Sig/Angelique Route PRN Reason Start Time Stop Time Status Last Admin Dose Admin Acetaminophen (Tylenol) 650 mg Q6H PRN ORAL For Headache 08/02/20 18:00 09/01/20 17:59 Acetaminophen (Tylenol) 650 mg Q6H PRN ORAL Temp >100.5 08/02/20 18:00 09/01/20 17:59 Acetaminophen/ Hydrocodone Bitart ([place] 7.5/325) 1 tab Q6H PRN ORAL For Pain 08/02/20 19:45 08/09/20 19:44 08/04/20 11:19 Ascorbic Acid (Vitamin C) 500 mg TWICE A DAY ORAL 08/03/20 09:00 09/02/20 08:59 08/04/20 17:51 Barium Sulfate (Readi-Cat 2) 450 ml NOW PRN ORAL Radiology Procedure 08/02/20 23:00 08/04/20 22:59 Ceftriaxone Sodium 1 gm/ Dextrose 55 ml @ 110 mls/hr Q24H IVPB 08/03/20 06:00 08/10/20 05:59 08/04/20 06:27 Duloxetine HCl (Cymbalta) 20 mg BID ORAL 08/03/20 09:00 11/01/20 08:59 08/04/20 17:51 Iohexol (OMNIPAQUE-300 100ml) 100 ml NOW PRN INJ Radiology Procedure 08/02/20 23:00 08/04/20 22:59 Ondansetron HCl (Zofran) 4 mg Q4H PRN IVP Nausea & Vomiting 08/02/20 18:00 09/01/20 17:59 Vancomycin HCl (Vanco pharmacy to dose) 1 ea DAILY PRN MISC Per rx protocol 08/02/20 18:00 09/01/20 17:59 Vancomycin HCl 1 gm/Dextrose 275 ml @ 183.708 mls/hr Q12HR IVPB 08/02/20 21:00 08/07/20 20:59 08/04/20 09:12 Zolpidem Tartrate (Ambien) 5 mg HSPRN PRN ORAL Insomnia 08/02/20 18:00 08/09/20 17:59 Allergies: Coded Allergies: No Known Allergies (Unverified , 08/02/20) ROS Limited/Unobtainable: No Constitutional: Reports: no symptoms HEENT: Reports: no symptoms Cardiovascular: Reports: no symptoms Respiratory: Reports: no symptoms Gastrointestinal/Abdominal: Reports: no symptoms Genitourinary: Reports: no symptoms Neurologic/Psychiatric: Reports: no symptoms Subjective 75 YO M admitted with left leg swelling. Now cellulitis left leg. Cover for Int Douglas-Dr Ross Objective Last Vital Signs Date Time Temp Pulse Resp B/P (MAP) Pulse Ox O2 Delivery O2 Flow Rate FiO2 08/04/20 16:00 98.6 85 20 111/77 (88) 99 08/04/20 09:00 Room Air Laboratory Tests Test 08/03/20 19:50 08/04/20 07:26 Vancomycin Level Trough 11.1 ug/mL (5.0-12.0) Prothrombin Time 12.7 SEC (9.30-11.50) H Prothromb Time International Ratio 1.2 (0.9-1.1) H Activated Partial Thromboplast Time 35 SEC (23-33) H Sodium Level 142 MMOL/L (136-145) Potassium Level 4.0 MMOL/L (3.5-5.1) Chloride Level 106 MMOL/L (98-107) Carbon Dioxide Level 33 MMOL/L (21-32) H Anion Gap 3 mmol/L (5-15) L Blood Urea Nitrogen 14 mg/dL (7-18) Creatinine 0.8 MG/DL (0.55-1.30) Estimat Glomerular Filtration Rate > 60 mL/min (>60) Glucose Level 77 MG/DL (74-106) Calcium Level 8.4 MG/DL (8.5-10.1) L Magnesium Level 2.2 MG/DL (1.8-2.4) Microbiology Date/Time Source Procedure Growth Status 08/02/20 11:00 Blood Blood Culture - Preliminary NO GROWTH AFTER 24 HOURS Resulted 08/02/20 11:00 Blood Blood Culture - Preliminary NO GROWTH AFTER 24 HOURS Resulted Intake and Output 08/03/20 08/04/20 19:00 07:00 Output Total 1100 ml Balance -1100 ml Output Urine Total 1100 ml # Voids 4 Objective Objective GENERAL: Awake and responsive, in no acute distress. HEAD AND NECK: Pupils are equal and reactive to light. Extraocular movements are intact. Neck was supple. No JVD. LUNGS: Good air entry with no wheezing or rales. HEART: S1, S2. Regular rhythm. Systolic ejection murmur was noted in the left sternal border. ABDOMEN: Soft, nondistended, and nontender. Positive bowel sounds. EXTREMITIES: No cyanosis or clubbing. Left lower extremity has +3 edema and less erythema . NEUROLOGIC: Cranial nerves II through XII were grossly normal. Motor is 5/5 in all extremities. Gait was not assessed. RECTAL/GENITOURINARY: Refused and deferred. PSYCHIATRIC: Mood and affect is intact. Assessment/Plan Assessment/Plan Assessment/Plan Assessment/Plan 1. Left lower extremity cellulitis. 2. Non-Hodgkin lymphoma. 3. Hereditary hemorrhagic telangiectasia (AV Malformation) 4. History of urinary retention / chronic bladder outlet obstruction requiring frequent catheterization. 5. Cardiac murmur. Plan: In medical floor. Follow up with the laboratory and cultures. Code status is Full Code. DVT prophylaxis, heparin subcutaneous. Dr. Erasmo Segura from Infectious Disease. Abx: Rocephin and vancomycin IV CT scan of the abdomen and pelvis Noted. discussed with the daughter extensively over the phone with regard to plan of care and therapy. Lasix 20mg IV X 1 dose Duplex of lower extremity: Negative for evidence of lower extremity deep venous thrombosis bilaterally Incidental finding of left knee joint effusion and small complicated popliteal cyst. CT scan of the abdomen and pelvic: Soft tissue attenuation 18 mm mass in the left kidney. Although possibly a complicated cyst, neoplasm also possible. Sonography may be useful to clarify. Mild rectal distention with feces. Impaction possible. Correlate with clinical findings Slight hepatic surface nodularity, raises concern for cirrhosis. Unusual finding of very ectatic hepatic artery raises concern for portal hypertension. Unusual mural calcification in the upstream inferior vena cava extending into the left common iliac vein. Significance/etiology uncertain, could represent calcified chronic thrombus or possibly a calcified fibrin sheath is there is been a catheter at this location in the past Marked bladder wall thickening and trabeculation, likely chronic bladder outlet obstruction Mild edema of the bilateral flank subcutaneous fat Nonobstructive right renal calyceal calculus Other findings as noted, including subcentimeter probable liver cysts, small hiatal hernia,, bilateral renal cysts and too small to characterize subcentimeter low-attenuation lesions, left renal parapelvic cysts, degenerative spondylosis, basilar pulmonary atelectasis Aug 03, 2020 15:52 Gustabo Sultana MD Aug 04, 2020 19:27
--- NOTE | 2020-08-04 19:46 | NUR ---
NURSE HAND-OFF: Important Events on Shift:nose bleeding Patient Status: stable Diet: regular Pending Orders: n/a Pending Results/Labs:n/a Pending MD notification:n/a Latest Vital Signs: Temperature 98.6 , Pulse 85 , B/P 111 /77 , Respiratory Rate 20 , O2 SAT 99 , , O2 Flow Rate . Vital Sign Comment: stable Latest Go Fall Score: 60 Fall Risk: High Risk Safety Measures: Call light Within Reach, Bed Alarm Zone 1, Side Rails Side Rails x2, Bed position Low and Locked. Fall Precautions: Yellow Socks Door Sign Patient Fall Education Report given to Brendan.
--- NOTE | 2020-08-04 19:50 | NUR ---
NURSE NOTES: Pt received from DEWAYNE Peace. Pt is resting comfortably in bed and c/o mild pain in LLE. Pt is A/Ox4 and ambulatory with limitation to pain in lower extremity. Pt is breathing unlabored on RA and asymptomatic. Pt has LFA 22G SL patent with dressing dry and intact. Bed is locked and in lowest position with call light within reach. Will continue to monitor.
[2020-08-04 20:00] VITALS: BP 100/48
[2020-08-05] VITALS: BP 98/42
[2020-08-05 04:00] VITALS: BP 102/55
[2020-08-05] MEDS: cefTRIAXone 1 GM in D5W 55 ML IVPB SCH (05:16)
[2020-08-05] MEDS: HYDROcodone/Acetamin 7.5/325 tab ORAL PRN ×2 (06:01→20:25)
--- NOTE | 2020-08-05 06:53 | NUR ---
NURSE HAND-OFF: Important Events on Shift:PT continued scheduled medications. Received one dose of PRN pain medication. Patient Status: Stable Diet: Regular Pending Orders: Pending Results/Labs:AM Labs Pending MD notification: Latest Vital Signs: Temperature 98.3 , Pulse 79 , B/P 102 /55 , Respiratory Rate 18 , O2 SAT 98 , , O2 Flow Rate . Vital Sign Comment: VSS Latest Go Fall Score: 60 Fall Risk: High Risk Safety Measures: Call light Within Reach, Bed Alarm Zone 1, Side Rails Side Rails x2, Bed position Low and Locked. Fall Precautions: Yellow Socks Door Sign Patient Fall Education Report to be given.
--- NOTE | 2020-08-05 07:40 | NUR ---
NURSE NOTES: Pt received from DEWAYNE Cardona. Pt is sitting on the bed having nose bleed. Pt is A/Ox4 and ambulatory with limitation to pain in lower extremity. Per pt, the pain better than yesterday. Pt is breathing unlabored on RA and asymptomatic. Pt has LFA 22G patent with dressing dry and intact. Bed is locked and in lowest position with call light within reach. Will continue to monitor.
[2020-08-05 08:00] VITALS: BP 99/47
--- NOTE | 2020-08-05 09:00 | NUR ---
NURSE NOTES: RN made Dr. Ross aware about patient's nose bleed and asked if cymbalta should be discontinued for its side effects of causing bleeding. Dr. Ross said that it should not be discontinued. RN notified charge nurse Francesca and she said it should not be given. Patient also refused the medication himself for its side effects of causing him to bleed. Will continue to monitor.
[2020-08-05 09:14] LABS: BASOPHILS % (AUTO) 1.8 % (0.0-2.0); EOSINOPHILS % (AUTO) 1.8 % (0.0-3.0); HEMATOCRIT 28.4 % (42.0-52.0); HEMOGLOBIN 8.7 G/DL (14.2-18.0); LYMPHOCYTES % (AUTO) 6.5 % (20.0-45.0); MEAN CORPUSCULAR VOLUME 106 FL (80-99); MONOCYTES % (AUTO) 16.5 % (1.0-10.0); NEUTROPHILS % (AUTO) 73.5 % (45.0-75.0); PLATELET COUNT 458 K/UL (150-450); RED BLOOD COUNT 2.69 M/UL (4.70-6.10); RED CELL DISTRIBUTION WIDTH 14.2 % (11.6-14.8); WHITE BLOOD COUNT 6.4 K/UL (4.8-10.8)
[2020-08-05] MEDS: Ascorbic Acid 500mg tab ORAL SCH ×2 (09:21→17:59)
[2020-08-05] MEDS: Vancomycin 1gm/D5W 275ml IVPB SCH ×4 (09:22→20:26)
[2020-08-05 09:35] LABS: ANION GAP 4 mmol/L (5-15); BLOOD UREA NITROGEN 16 mg/dL (7-18); CALCIUM 8.6 MG/DL (8.5-10.1); CARBON DIOXIDE 32 MMOL/L (21-32); CHLORIDE 105 MMOL/L (98-107); CREATININE 0.9 MG/DL (0.55-1.30); POTASSIUM 3.8 MMOL/L (3.5-5.1); SODIUM 141 MMOL/L (136-145)
--- NOTE | 2020-08-05 10:17 | Infectious Diseases Prog Note ---
Assessment/Plan 75yo M with: Afebrile Normal WBC LLE cellulitis, diffuse swelling 08/02 BCx NTD BLE US to r/o DVT neg R/o COVID, no resp cx 08/02 CXR: No acute process CT A/P neg for acute process Cr 0.9 PMH: Waldenstrom's B cell lymphoma HHT Plan: Cont CTX/vanco empiric #4 for now Elevate LLE on 2-3 pillows to help w/ drainage of edema Swelling less likely 2/2 ongoing infection given lack of erythema, pain and leukocytosis, would evaluate for non-infectious reasons for worsening LLE edema Monitor CBC/CMP Monitor temp curve, hemodynamics Monitor resp status D/w RN Thank you for this consult. [facility] will continue to follow. Subjective Allergies: Coded Allergies: No Known Allergies (Unverified , 08/02/20) AF NAD on RA WBC 6.4 LLE still just as swollen as prior Objective Last 24 Hour Vital Signs Date Time Temp Pulse Resp B/P (MAP) Pulse Ox O2 Delivery O2 Flow Rate FiO2 08/05/20 08:00 97.9 84 18 99/47 (64) 98 08/05/20 04:00 98.3 79 18 102/55 (71) 98 08/05/20 00:00 98.6 78 20 98/42 (60) 97 08/04/20 21:00 Room Air 08/04/20 20:00 98.6 80 20 100/48 (65) 97 08/04/20 16:00 98.6 85 20 111/77 (88) 99 08/04/20 12:00 97.3 91 18 105/54 (71) 99 08/04/20 11:49 97.3 Height (Feet): 5 Height (Inches): 6.00 Weight (Pounds): 155 Gen: NAD HEENT: NCAT Pulm: BL chest rise Abd: Non-distended Ext: LL w/ diffuse 2+ pitting edema up to mid thigh, w/ mild erythema of the skin in dependent areas of edema, non-TTP Skin: No visible rashes Neuro: Awake Microbiology Date/Time Source Procedure Growth Status 08/02/20 11:00 Blood Blood Culture - Preliminary NO GROWTH AFTER 48 HOURS Resulted 08/02/20 11:00 Blood Blood Culture - Preliminary NO GROWTH AFTER 48 HOURS Resulted Laboratory Tests Test 08/04/20 11:55 08/05/20 08:45 POC Whole Blood Glucose 98 MG/DL (74-106) White Blood Count 6.4 K/UL (4.8-10.8) Red Blood Count 2.69 M/UL (4.70-6.10) L Hemoglobin 8.7 G/DL (14.2-18.0) L Hematocrit 28.4 % (42.0-52.0) L Mean Corpuscular Volume 106 FL (80-99) H Mean Corpuscular Hemoglobin 32.3 PG (27.0-31.0) H Mean Corpuscular Hemoglobin Concent 30.5 G/DL (32.0-36.0) L Red Cell Distribution Width 14.2 % (11.6-14.8) Platelet Count 458 K/UL (150-450) H Mean Platelet Volume 6.4 FL (6.5-10.1) L Neutrophils (%) (Auto) 73.5 % (45.0-75.0) Lymphocytes (%) (Auto) 6.5 % (20.0-45.0) L Monocytes (%) (Auto) 16.5 % (1.0-10.0) H Eosinophils (%) (Auto) 1.8 % (0.0-3.0) Basophils (%) (Auto) 1.8 % (0.0-2.0) Sodium Level 141 MMOL/L (136-145) Potassium Level 3.8 MMOL/L (3.5-5.1) Chloride Level 105 MMOL/L (98-107) Carbon Dioxide Level 32 MMOL/L (21-32) Anion Gap 4 mmol/L (5-15) L Blood Urea Nitrogen 16 mg/dL (7-18) Creatinine 0.9 MG/DL (0.55-1.30) Estimat Glomerular Filtration Rate > 60 mL/min (>60) Glucose Level 99 MG/DL (74-106) Calcium Level 8.6 MG/DL (8.5-10.1) Current Medications Medications (Trade) Dose Ordered Sig/Angelique Route PRN Reason Start Time Stop Time Status Last Admin Dose Admin Acetaminophen (Tylenol) 650 mg Q6H PRN ORAL For Headache 08/02/20 18:00 09/01/20 17:59 Acetaminophen (Tylenol) 650 mg Q6H PRN ORAL Temp >100.5 08/02/20 18:00 09/01/20 17:59 Acetaminophen/ Hydrocodone Bitart ([place] 7.5/325) 1 tab Q6H PRN ORAL For Pain 08/02/20 19:45 08/09/20 19:44 08/05/20 06:01 Ascorbic Acid (Vitamin C) 500 mg TWICE A DAY ORAL 08/03/20 09:00 09/02/20 08:59 08/05/20 09:21 Ceftriaxone Sodium 1 gm/ Dextrose 55 ml @ 110 mls/hr Q24H IVPB 08/03/20 06:00 08/10/20 05:59 08/05/20 05:16 Duloxetine HCl (Cymbalta) 20 mg BID ORAL 08/03/20 09:00 11/01/20 08:59 08/04/20 17:51 Ondansetron HCl (Zofran) 4 mg Q4H PRN IVP Nausea & Vomiting 08/02/20 18:00 09/01/20 17:59 Vancomycin HCl (Vanco pharmacy to dose) 1 ea DAILY PRN MISC Per rx protocol 08/02/20 18:00 09/01/20 17:59 Vancomycin HCl 1 gm/Dextrose 275 ml @ 183.708 mls/hr Q12HR IVPB 08/02/20 21:00 08/07/20 20:59 08/05/20 09:22 Zolpidem Tartrate (Ambien) 5 mg HSPRN PRN ORAL Insomnia 08/02/20 18:00 08/09/20 17:59 Kathleen Dunaway M.D. Aug 05, 2020 10:17
[2020-08-05 12:00] VITALS: BP 109/42
--- NOTE | 2020-08-05 13:19 | Consultation ---
History of Present Illness General Date patient seen: Aug 05, 2020 Reason for Hospitalization: Edema Present Illness HPI 75-year-old male history of HHT, lymphoma, presents for left lower extremity pain and swelling. He states this has been gradually worsening over the past 2 weeks. He was initially treated for gout, but it did not improve, he then had an ultrasound which ruled out DVT, this week he had an MRI of his leg. The result is unknown however he was seen by orthopedics who suspected cellulitis and sent patient to the ER. Patient denies any fever. Does express left lower extremity pain that is worse with movement and palpation. No history of cell ulitis. States intermittent epi taxis now resolved has nasal packing in place. Surgery called to evaluate assist with care. Allergies: Coded Allergies: No Known Allergies (Unverified , 08/02/20) COVID-19 Screening Contact w/high risk pt: No Experienced COVID-19 symptoms?: No Medication History Scheduled Alpha Lipoic Acid (Alpha Lipoic Acid), 600 MG PO BID, (Reported) Ascorbic Acid* (Ascorbic Acid*), 500 MG ORAL TWICE A DAY, (Reported) Duloxetine Hcl* (Cymbalta*), 20 MG ORAL BID, (Reported) Zinc Amino Acid Chelate (Zinc), 50 MG ORAL BID, (Reported) Miscellaneous Medications Hydrocodone Bit/Acetaminophen (Hydrocodon-Acetaminoph 7.5-300), 1 EACH PO, (Reported) [amicar], (Reported) [medrol 24mg], (Reported) Patient History History Provided By: Patient, Medical Record, PMD Healthcare decision maker Resuscitation status Advanced Directive on File Past Medical/Surgical History Past Medical/Surgical History: (1) Cellulitis of leg, left (2) Weakness (3) Seizure Review of Systems Review of Symptoms General ROS: no weight loss or fever Psychological ROS: no depression or mood changes, no memory loss Ophthalmic ROS: no visual changes or eye irritation ENT ROS: no nasal congestion, hearing loss, dizziness Allergy and Immunology ROS: no allergic symptoms or urticaria Hematological and Lymphatic ROS: no swollen glands, unusual bleeding or bruising Endocrine ROS: no polyuria, polydipsia, weight changes, temperature intolerance Respiratory ROS: no cough, shortness of breath, or wheezing Cardiovascular ROS: no chest pain or dyspnea on exertion Gastrointestinal ROS: denies abdominal pain, bright red blood in stool. Musculoskeletal ROS: no myalgias or arthralgias Neurological ROS: no TIA or stroke symptoms Dermatological ROS: no new or changing skin lesions, rashes or pruritis Physical Exam Physical Exam General appearance: alert, cooperative, no distress, appears stated age Head: Normocephalic, without obvious abnormality, atraumatic Eyes: conjunctivae/corneas clear. PERRL, EOM's intact. Fundi benign Throat: Lips, mucosa, and tongue normal. Teeth and gums normal Neck: supple, symmetrical, trachea midline, no adenopathy, thyroid: not enlarged, symmetric, no tenderness/mass/nodules, no carotid bruit and no JVD Lungs: clear to auscultation bilaterally Heart: regular rate and rhythm, S1, S2 normal, no murmur, click, rub or gallop Abdomen: soft, non-tender. Bowel sounds normal. No masses, no organomegaly Extremities: extremities normal, atraumatic, no cyanosis or edema Pulses: 2+ and symmetric Skin: Skin color, texture, turgor normal. No rashes or lesions Neurologic: Grossly normal Last 24 Hour Vital Signs Date Time Temp Pulse Resp B/P (MAP) Pulse Ox O2 Delivery O2 Flow Rate FiO2 08/05/20 08:00 97.9 84 18 99/47 (64) 98 08/05/20 04:00 98.3 79 18 102/55 (71) 98 08/05/20 00:00 98.6 78 20 98/42 (60) 97 08/04/20 21:00 Room Air 08/04/20 20:00 98.6 80 20 100/48 (65) 97 08/04/20 16:00 98.6 85 20 111/77 (88) 99 Intake and Output 08/04/20 08/05/20 19:00 07:00 Intake Total 475 ml 240 ml Output Total 300 ml Balance 475 ml -60 ml Intake Oral 200 ml 240 ml IV Total 275 ml Output Urine Total 300 ml # Voids 2 Laboratory Tests Test 08/05/20 08:45 White Blood Count 6.4 K/UL (4.8-10.8) Red Blood Count 2.69 M/UL (4.70-6.10) L Hemoglobin 8.7 G/DL (14.2-18.0) L Hematocrit 28.4 % (42.0-52.0) L Mean Corpuscular Volume 106 FL (80-99) H Mean Corpuscular Hemoglobin 32.3 PG (27.0-31.0) H Mean Corpuscular Hemoglobin Concent 30.5 G/DL (32.0-36.0) L Red Cell Distribution Width 14.2 % (11.6-14.8) Platelet Count 458 K/UL (150-450) H Mean Platelet Volume 6.4 FL (6.5-10.1) L Neutrophils (%) (Auto) 73.5 % (45.0-75.0) Lymphocytes (%) (Auto) 6.5 % (20.0-45.0) L Monocytes (%) (Auto) 16.5 % (1.0-10.0) H Eosinophils (%) (Auto) 1.8 % (0.0-3.0) Basophils (%) (Auto) 1.8 % (0.0-2.0) Sodium Level 141 MMOL/L (136-145) Potassium Level 3.8 MMOL/L (3.5-5.1) Chloride Level 105 MMOL/L (98-107) Carbon Dioxide Level 32 MMOL/L (21-32) Anion Gap 4 mmol/L (5-15) L Blood Urea Nitrogen 16 mg/dL (7-18) Creatinine 0.9 MG/DL (0.55-1.30) Estimat Glomerular Filtration Rate > 60 mL/min (>60) Glucose Level 99 MG/DL (74-106) Calcium Level 8.6 MG/DL (8.5-10.1) Height (Feet): 5 Height (Inches): 6.00 Weight (Pounds): 155 Medications Current Medications Medications (Trade) Dose Ordered Sig/Angelique Route PRN Reason Start Time Stop Time Status Last Admin Dose Admin Acetaminophen (Tylenol) 650 mg Q6H PRN ORAL For Headache 08/02/20 18:00 09/01/20 17:59 Acetaminophen (Tylenol) 650 mg Q6H PRN ORAL Temp >100.5 08/02/20 18:00 09/01/20 17:59 Acetaminophen/ Hydrocodone Bitart ([place] 7.5/325) 1 tab Q6H PRN ORAL For Pain 08/02/20 19:45 08/09/20 19:44 08/05/20 06:01 Ascorbic Acid (Vitamin C) 500 mg TWICE A DAY ORAL 08/03/20 09:00 09/02/20 08:59 08/05/20 09:21 Ceftriaxone Sodium 1 gm/ Dextrose 55 ml @ 110 mls/hr Q24H IVPB 08/03/20 06:00 08/10/20 05:59 08/05/20 05:16 Duloxetine HCl (Cymbalta) 20 mg BID ORAL 08/03/20 09:00 11/01/20 08:59 08/04/20 17:51 Ondansetron HCl (Zofran) 4 mg Q4H PRN IVP Nausea & Vomiting 08/02/20 18:00 09/01/20 17:59 Vancomycin HCl (Vanco pharmacy to dose) 1 ea DAILY PRN MISC Per rx protocol 08/02/20 18:00 09/01/20 17:59 Vancomycin HCl 1 gm/Dextrose 275 ml @ 183.708 mls/hr Q12HR IVPB 08/02/20 21:00 08/07/20 20:59 08/05/20 09:22 Zolpidem Tartrate (Ambien) 5 mg HSPRN PRN ORAL Insomnia 08/02/20 18:00 08/09/20 17:59 Assessment/Plan Problem List: (1) Cellulitis of leg, left Assessment & Plan: Cellulitis left leg on abx ortho eval outpatient noted no n/v ambulatory feels better cont abx keep elevated while in bed no abscess noted CT noted. constipated. bowel regimen epistasis, now resolved. patient applies his own nasal packing intermittently The rectum is mildly distended with feces. What is probably a normal appendix is visualized. No small bowel distention or small bowel wall thickening. Ingested contrast reaches the proximal ascending colon. No free or loculated intraperitoneal gas or fluid is evident. The distal esophagus demonstrates a small hiatal hernia. The liver demonstrates slight surface nodularity. The common and proper hepatic artery is unusually ectatic. The liver demonstrates a few subcentimeter low-attenuation lesions which are too small to characterize. The pancreas, spleen, adrenals are unremarkable. The kidneys demonstrate bilateral cysts. The right kidney demonstrates a 4 mm calculus in an interpolar region calyx. The left kidney demonstrates an intermediate attenuation mass in the anterior upper pole which measures 18 mm in diameter. It demonstrates a few parapelvic cysts. It demonstrates one or more subcentimeter low-attenuation lesions which are too small to characterize as well. No retroperitoneal or mesenteric mass or adenopathy. There is unusual mural calcification extending into the lumen in the upstream inferior vena cava extending into the left common iliac vein. The bladder demonstrates marked wall thickening and trabeculation. No pelvic mass or adenopathy. There is mild edema of the bilateral flank subcutaneous fat. The included lung bases demonstrate posterior atelectatic changes. The bones demonstrate degenerative spondylosis changes. Impression: Soft tissue attenuation 18 mm mass in the left kidney. Although possibly a complicated cyst, neoplasm also possible. Sonography may be useful to clarify. Mild rectal distention with feces. Impaction possible. Correlate with clinical findings Slight hepatic surface nodularity, raises concern for cirrhosis. Unusual finding of very ectatic hepatic artery raises concern for portal hypertension. Unusual mural calcification in the upstream inferior vena cava extending into the left common iliac vein. Significance/etiology uncertain, could represent calcified chronic thrombus or possibly a calcified fibrin sheath is there is been a catheter at this location in the past Marked bladder wall thickening and trabeculation, likely chronic bladder outlet obstruction Mild edema of the bilateral flank subcutaneous fat Nonobstructive right renal calyceal calculus Other findings as noted, including subcentimeter probable liver cysts, small hiatal hernia,, bilateral renal cysts and too small to characterize subcentimeter low-attenuation lesions, left renal parapelvic cysts, degenerative spondylosis, basilar pulmonary atelectasis ICD Codes: L03.116 - Cellulitis of left lower limb SNOMED: 948061327 (2) Seizure ICD Codes: R56.9 - Unspecified convulsions SNOMED: 47840520 (3) Weakness ICD Codes: R53.1 - Weakness SNOMED: 87423321 Ananda Ruvalcaba Aug 05, 2020 13:19
[2020-08-05] MEDS: AMINOCAPROIC ACID 500 MG ORAL SCH ×2 (14:18→17:59)
--- NOTE | 2020-08-05 15:38 | Internal Med Progress Note ---
Subjective Date of Service: Aug 05, 2020 Physician Name Gustabo Sultana Attending Physician Martir Ross MD Current Medications Medications (Trade) Dose Ordered Sig/Angelique Route PRN Reason Start Time Stop Time Status Last Admin Dose Admin Acetaminophen (Tylenol) 650 mg Q6H PRN ORAL For Headache 08/02/20 18:00 09/01/20 17:59 Acetaminophen (Tylenol) 650 mg Q6H PRN ORAL Temp >100.5 08/02/20 18:00 09/01/20 17:59 Acetaminophen/ Hydrocodone Bitart ([place] 7.5/325) 1 tab Q6H PRN ORAL For Pain 08/02/20 19:45 08/09/20 19:44 08/05/20 06:01 Ascorbic Acid (Vitamin C) 500 mg TWICE A DAY ORAL 08/03/20 09:00 09/02/20 08:59 08/05/20 09:21 Duloxetine HCl (Cymbalta) 20 mg BID ORAL 08/03/20 09:00 11/01/20 08:59 08/04/20 17:51 Furosemide (Lasix) 20 mg DAILY IV 08/06/20 09:00 09/05/20 08:59 Ondansetron HCl (Zofran) 4 mg Q4H PRN IVP Nausea & Vomiting 08/02/20 18:00 09/01/20 17:59 Patient Own Medication (Patient's Own Med) 2 ea BID ORAL 08/05/20 13:45 09/04/20 13:44 08/05/20 14:18 Vancomycin HCl ([facility] pharmacy to dose) 1 ea DAILY PRN MISC Per rx protocol 08/02/20 18:00 09/01/20 17:59 Vancomycin HCl 1 gm/Dextrose 275 ml @ 183.708 mls/hr Q12HR IVPB 08/02/20 21:00 08/07/20 20:59 08/05/20 09:22 Zolpidem Tartrate (Ambien) 5 mg HSPRN PRN ORAL Insomnia 08/02/20 18:00 08/09/20 17:59 Allergies: Coded Allergies: No Known Allergies (Unverified , 08/02/20) Subjective 75 YO M admitted with left leg swelling. Now cellulitis left leg. Cover for Int Med-Dr Ross Objective Last Vital Signs Date Time Temp Pulse Resp B/P (MAP) Pulse Ox O2 Delivery O2 Flow Rate FiO2 08/05/20 12:00 97.6 79 18 109/42 (64) 98 08/05/20 09:00 Room Air Laboratory Tests Test 08/05/20 08:45 White Blood Count 6.4 K/UL (4.8-10.8) Red Blood Count 2.69 M/UL (4.70-6.10) L Hemoglobin 8.7 G/DL (14.2-18.0) L Hematocrit 28.4 % (42.0-52.0) L Mean Corpuscular Volume 106 FL (80-99) H Mean Corpuscular Hemoglobin 32.3 PG (27.0-31.0) H Mean Corpuscular Hemoglobin Concent 30.5 G/DL (32.0-36.0) L Red Cell Distribution Width 14.2 % (11.6-14.8) Platelet Count 458 K/UL (150-450) H Mean Platelet Volume 6.4 FL (6.5-10.1) L Neutrophils (%) (Auto) 73.5 % (45.0-75.0) Lymphocytes (%) (Auto) 6.5 % (20.0-45.0) L Monocytes (%) (Auto) 16.5 % (1.0-10.0) H Eosinophils (%) (Auto) 1.8 % (0.0-3.0) Basophils (%) (Auto) 1.8 % (0.0-2.0) Sodium Level 141 MMOL/L (136-145) Potassium Level 3.8 MMOL/L (3.5-5.1) Chloride Level 105 MMOL/L (98-107) Carbon Dioxide Level 32 MMOL/L (21-32) Anion Gap 4 mmol/L (5-15) L Blood Urea Nitrogen 16 mg/dL (7-18) Creatinine 0.9 MG/DL (0.55-1.30) Estimat Glomerular Filtration Rate > 60 mL/min (>60) Glucose Level 99 MG/DL (74-106) Calcium Level 8.6 MG/DL (8.5-10.1) Intake and Output 08/04/20 08/05/20 19:00 07:00 Intake Total 475 ml 240 ml Output Total 300 ml Balance 475 ml -60 ml Intake Oral 200 ml 240 ml IV Total 275 ml Output Urine Total 300 ml # Voids 2 Objective Objective GENERAL: Awake and responsive, in no acute distress. HEAD AND NECK: Pupils are equal and reactive to light. Extraocular movements are intact. Neck was supple. No JVD. LUNGS: Good air entry with no wheezing or rales. HEART: S1, S2. Regular rhythm. Systolic ejection murmur was noted in the left sternal border. ABDOMEN: Soft, nondistended, and nontender. Positive bowel sounds. EXTREMITIES: No cyanosis or clubbing. Left lower extremity has +3 edema and less erythema . NEUROLOGIC: Cranial nerves II through XII were grossly normal. Motor is 5/5 in all extremities. Gait was not assessed. RECTAL/GENITOURINARY: Refused and deferred. PSYCHIATRIC: Mood and affect is intact. Assessment/Plan Assessment/Plan Assessment/Plan Assessment/Plan 1. Left lower extremity cellulitis. 2. Non-Hodgkin lymphoma. 3. Hereditary hemorrhagic telangiectasia (AV Malformation) 4. History of urinary retention / chronic bladder outlet obstruction requiring frequent catheterization. 5. Cardiac murmur. Plan: In medical floor. Follow up with the laboratory and cultures. Code status is Full Code. DVT prophylaxis, heparin subcutaneous. Dr. Erasmo Segura = Infectious Disease. Abx: Rocephin and vancomycin IV CT scan of the abdomen and pelvis Noted. Lasix 20mg IV X 1 dose Duplex of lower extremity: Negative for evidence of lower extremity deep venous thrombosis bilaterally Incidental finding of left knee joint effusion and small complicated popliteal cyst. CT scan of the abdomen and pelvic: Soft tissue attenuation 18 mm mass in the left kidney. Although possibly a complicated cyst, neoplasm also possible. Sonography may be useful to clarify. Mild rectal distention with feces. Impaction possible. Correlate with clinical findings Slight hepatic surface nodularity, raises concern for cirrhosis. Unusual finding of very ectatic hepatic artery raises concern for portal hypertension. Unusual mural calcification in the upstream inferior vena cava extending into the left common iliac vein. Significance/etiology uncertain, could represent calcified chronic thrombus or possibly a calcified fibrin sheath is there is been a catheter at this location in the past Marked bladder wall thickening and trabeculation, likely chronic bladder outlet obstruction Mild edema of the bilateral flank subcutaneous fat Nonobstructive right renal calyceal calculus Other findings as noted, including subcentimeter probable liver cysts, small hiatal hernia,, bilateral renal cysts and too small to characterize subcentimeter low-attenuation lesions, left renal parapelvic cysts, degenerative spondylosis, basilar pulmonary atelectasis Aug 03, 2020 15:52 Gustabo Sultana MD Aug 05, 2020 15:38
[2020-08-05 16:00] VITALS: BP 113/75
--- NOTE | 2020-08-05 19:51 | NUR ---
NURSE HAND-OFF: Important Events on Shift:nose bleeds Patient Status: stable Diet: regular Pending Orders: n/a Pending Results/Labs:n/a Pending MD notification:n/a Latest Vital Signs: Temperature 97.6 , Pulse 84 , B/P 113 /75 , Respiratory Rate 17 , O2 SAT 99 , , O2 Flow Rate . Vital Sign Comment: stable Latest Go Fall Score: 60 Fall Risk: High Risk Safety Measures: Call light Within Reach, Bed Alarm Zone 1, Side Rails Side Rails x2, Bed position Low and Locked. Fall Precautions: Yellow Socks Door Sign Patient Fall Education Report given to
[2020-08-05 20:00] VITALS: BP 118/96
--- NOTE | 2020-08-05 21:46 | NUR ---
NURSE NOTES: Patient on chair, on room air, with nose pincher to shop mechanic helper his nose bleeding. Ice pack given and pt instructed. Instructed to use call light for assistance. Call light in reach. Bed in lowest, lock engaged and alarm on. Will continue plan of care.
[2020-08-06] VITALS (7 sets, daily range): BP systolic 95–108; BP diastolic 40–58
[2020-08-06] MEDS: HYDROcodone/Acetamin 7.5/325 tab ORAL PRN (05:25)
--- NOTE | 2020-08-06 07:09 | NUR ---
NURSE HAND-OFF: Important Events on Shift: pain mgt, 1 bm Patient Status: Diet: regular Pending Orders: Pending Results/Labs: Pending MD notification: Latest Vital Signs: Temperature 97.4 , Pulse 73 , B/P 95 /40 , Respiratory Rate 18 , O2 SAT 95 , , O2 Flow Rate . Vital Sign Comment: Latest Go Fall Score: 60 Fall Risk: High Risk Safety Measures: Call light Within Reach, Bed Alarm Zone 1, Side Rails Side Rails x2, Bed position Low and Locked. Fall Precautions: Yellow Socks Door Sign Patient Fall Education Report given to Ms. Ines RN.
--- NOTE | 2020-08-06 07:13 | NUR ---
NURSE NOTES: Received hand-off report from GERA HERNANDEZ RN. Patient in stable condition, breathing even and unlabored, no bleeding noted and patient stated nose has remained clean and dry and not bleeding since yesterday. Alert and oriented x4, able to verbalize needs well, breathing even and unlabored, bilateral arm bruising and swelling noted, significant swelling noted in lower extremities, lower legs elevated with 2 pillows. Bed alarm on, bed in lowest and locked position, side rails up x2, call light within reach.
--- NOTE | 2020-08-06 08:51 | Infectious Diseases Prog Note ---
Assessment/Plan 75yo M with: Afebrile Normal WBC LLE swelling R/o LLE cellulitis 2/4 BCx NTD BLE US to r/o DVT neg CT A/P: No acute process. Unusual mural calcification in the upstream inferior vena cava extending into the left common iliac vein. Significance/etiology uncertain, could represent calcified chronic thrombus or possibly a calcified fibrin sheath is there is been a catheter at this location in the past R/o COVID, no resp cx 2/ CXR: No acute process Cr 0.9 PMH: Waldenstrom's B cell lymphoma HHT Plan: Start cefazolin #1/3 (abx d#5/7) for possible resolving cellulitis Stop CTX/vanco empiric #4 Elevate LLE on 2-3 pillows to help w/ drainage of edema Swelling less likely 2/2 ongoing infection given lack of erythema, pain and leukocytosis, would evaluate for non-infectious reasons for worsening LLE edema. CT A/P with "Unusual mural calcification in the upstream inferior vena cava extending into the left common iliac vein." Could this be contributing to edema? 08/06 SP CTX/vanco #4 Monitor CBC/CMP Monitor temp curve, hemodynamics Monitor resp status D/w RN Thank you for this consult. [facility] will continue to follow. Subjective Allergies: Coded Allergies: No Known Allergies (Unverified , 08/02/20) AF NAD on RA Ongoing swelling in LLE, not drastically changed, has been sitting on chair and elevating leg WBC 6.8 Objective Last 24 Hour Vital Signs Date Time Temp Pulse Resp B/P (MAP) Pulse Ox O2 Delivery O2 Flow Rate FiO2 08/06/20 04:00 97.4 73 18 95/40 (58) 95 08/06/20 00:00 97.8 83 18 95/45 (62) 98 08/05/20 21:00 Room Air 08/05/20 20:00 99.4 84 18 118/96 (103) 94 08/05/20 16:00 97.6 84 17 113/75 (88) 99 08/05/20 12:00 97.6 79 18 109/42 (64) 98 08/05/20 09:00 Room Air Height (Feet): 5 Height (Inches): 6.00 Weight (Pounds): 155 Gen: NAD HEENT: NCAT Pulm: BL chest rise Abd: Non-distended Ext: LL w/ diffuse 2+ pitting edema up to mid thigh, w/ mild erythema of the skin in dependent areas of edema, non-TTP Skin: No visible rashes Neuro: Awake Current Medications Medications (Trade) Dose Ordered Sig/Angelique Route PRN Reason Start Time Stop Time Status Last Admin Dose Admin Acetaminophen (Tylenol) 650 mg Q6H PRN ORAL For Headache 08/02/20 18:00 09/01/20 17:59 Acetaminophen (Tylenol) 650 mg Q6H PRN ORAL Temp >100.5 08/02/20 18:00 09/01/20 17:59 Acetaminophen/ Hydrocodone Bitart ([place] 7.5/325) 1 tab Q6H PRN ORAL For Pain 08/02/20 19:45 08/09/20 19:44 08/06/20 05:25 Ascorbic Acid (Vitamin C) 500 mg TWICE A DAY ORAL 08/03/20 09:00 09/02/20 08:59 08/05/20 17:59 Duloxetine HCl (Cymbalta) 20 mg BID ORAL 08/03/20 09:00 11/01/20 08:59 08/04/20 17:51 Furosemide (Lasix) 20 mg DAILY IV 08/06/20 09:00 09/05/20 08:59 Ondansetron HCl (Zofran) 4 mg Q4H PRN IVP Nausea & Vomiting 08/02/20 18:00 09/01/20 17:59 Patient Own Medication (Patient's Own Med) 2 ea BID ORAL 08/05/20 13:45 09/04/20 13:44 08/05/20 14:18 Potassium Chloride (K-Dur) 40 meq DAILY ORAL 08/06/20 09:00 11/04/20 08:59 Vancomycin HCl (Vanco pharmacy to dose) 1 ea DAILY PRN MISC Per rx protocol 08/02/20 18:00 09/01/20 17:59 Vancomycin HCl 1 gm/Dextrose 275 ml @ 183.708 mls/hr Q12HR IVPB 08/02/20 21:00 08/07/20 20:59 08/05/20 20:26 Zolpidem Tartrate (Ambien) 5 mg HSPRN PRN ORAL Insomnia 08/02/20 18:00 08/09/20 17:59 Kathleen Dunaway M.D. Aug 06, 2020 08:51
[2020-08-06] MEDS: Ascorbic Acid 500mg tab ORAL SCH ×2 (08:55→18:08)
[2020-08-06] MEDS: AMINOCAPROIC ACID 500 MG ORAL SCH ×2 (09:00→18:08)
[2020-08-06 09:43] LABS: BASOPHILS % (AUTO) 1.9 % (0.0-2.0); EOSINOPHILS % (AUTO) 2.9 % (0.0-3.0); HEMATOCRIT 29.5 % (42.0-52.0); LYMPHOCYTES % (AUTO) 8.5 % (20.0-45.0); MEAN CORPUSCULAR VOLUME 105 FL (80-99); MONOCYTES % (AUTO) 18.6 % (1.0-10.0); NEUTROPHILS % (AUTO) 68.2 % (45.0-75.0); PLATELET COUNT 497 K/UL (150-450); RED BLOOD COUNT 2.82 M/UL (4.70-6.10); RED CELL DISTRIBUTION WIDTH 14.7 % (11.6-14.8); WHITE BLOOD COUNT 6.8 K/UL (4.8-10.8)
[2020-08-06 09:51] LABS: INR 1.1 (0.9-1.1)
[2020-08-06] MEDS: ceFAZolin sod 1 GM in D5W 55 ML IVPB SCH ×2 (10:00→18:08)
[2020-08-06 10:06] LABS: ALANINE AMINOTRANSFERASE 17 U/L (12-78); ALBUMIN 2.2 G/DL (3.4-5.0); ALBUMIN/GLOBULIN RATIO 0.7 (1.0-2.7); ALKALINE PHOSPHATASE 71 U/L (46-116); ANION GAP 5 mmol/L (5-15); ASPARTATE AMINO TRANSFERASE 20 U/L (15-37); BILIRUBIN,TOTAL 0.5 MG/DL (0.2-1.0); BLOOD UREA NITROGEN 12 mg/dL (7-18); CALCIUM 8.6 MG/DL (8.5-10.1); CARBON DIOXIDE 31 MMOL/L (21-32); CHLORIDE 106 MMOL/L (98-107); CREATININE 0.8 MG/DL (0.55-1.30); POTASSIUM 3.6 MMOL/L (3.5-5.1); SODIUM 142 MMOL/L (136-145)
--- NOTE | 2020-08-06 18:02 | Surgery Progress Note ---
Surgery Progress Note Subjective Additional Comments states he is doing better no longer needs nasal packing no n/v no bleeding Objective Last 24 Hour Vital Signs Date Time Temp Pulse Resp B/P (MAP) Pulse Ox O2 Delivery O2 Flow Rate FiO2 08/06/20 16:00 97.9 75 18 98/58 (71) 100 08/06/20 12:00 98.4 82 18 108/46 (66) 96 08/06/20 09:00 Room Air 08/06/20 09:00 102/46 (64) 08/06/20 08:00 98.1 76 19 101/56 (71) 97 08/06/20 04:00 97.4 73 18 95/40 (58) 95 08/06/20 00:00 97.8 83 18 95/45 (62) 98 08/05/20 21:00 Room Air 08/05/20 20:00 99.4 84 18 118/96 (103) 94 I&O Intake and Output 08/05/20 08/06/20 19:00 07:00 Intake Total 275 ml 575.000 ml Output Total 350 ml 600 ml Balance -75 ml -25.000 ml Intake Oral 300 ml IV Total 275 ml 275.000 ml Output Urine Total 350 ml 600 ml # Voids 2 # Bowel Movements 1 Dressing: dry Wound: clean Cardiovascular: RSR Respiratory: clear Abdomen: soft, flat, non-tender, present bowel sounds, non-distended Extremities: no edema, no tenderness, no cyanosis Laboratory Tests Test 08/06/20 09:31 White Blood Count 6.8 K/UL (4.8-10.8) Red Blood Count 2.82 M/UL (4.70-6.10) L Hemoglobin 9.0 G/DL (14.2-18.0) L Hematocrit 29.5 % (42.0-52.0) L Mean Corpuscular Volume 105 FL (80-99) H Mean Corpuscular Hemoglobin 31.8 PG (27.0-31.0) H Mean Corpuscular Hemoglobin Concent 30.4 G/DL (32.0-36.0) L Red Cell Distribution Width 14.7 % (11.6-14.8) Platelet Count 497 K/UL (150-450) H Mean Platelet Volume 5.6 FL (6.5-10.1) L Neutrophils (%) (Auto) 68.2 % (45.0-75.0) Lymphocytes (%) (Auto) 8.5 % (20.0-45.0) L Monocytes (%) (Auto) 18.6 % (1.0-10.0) H Eosinophils (%) (Auto) 2.9 % (0.0-3.0) Basophils (%) (Auto) 1.9 % (0.0-2.0) Prothrombin Time 12.4 SEC (9.30-11.50) H Prothromb Time International Ratio 1.1 (0.9-1.1) Activated Partial Thromboplast Time 31 SEC (23-33) Sodium Level 142 MMOL/L (136-145) Potassium Level 3.6 MMOL/L (3.5-5.1) Chloride Level 106 MMOL/L (98-107) Carbon Dioxide Level 31 MMOL/L (21-32) Anion Gap 5 mmol/L (5-15) Blood Urea Nitrogen 12 mg/dL (7-18) Creatinine 0.8 MG/DL (0.55-1.30) Estimat Glomerular Filtration Rate > 60 mL/min (>60) Glucose Level 93 MG/DL (74-106) Calcium Level 8.6 MG/DL (8.5-10.1) Total Bilirubin 0.5 MG/DL (0.2-1.0) Aspartate Amino Transf (AST/SGOT) 20 U/L (15-37) Alanine Aminotransferase (ALT/SGPT) 17 U/L (12-78) Alkaline Phosphatase 71 U/L (46-116) Total Protein 5.4 G/DL (6.4-8.2) L Albumin 2.2 G/DL (3.4-5.0) L Globulin 3.2 g/dL Albumin/Globulin Ratio 0.7 (1.0-2.7) L Plan Problems: (1) Cellulitis of leg, left Assessment & Plan: Cellulitis left leg on abx ortho eval outpatient noted no n/v ambulatory feels better cont abx keep elevated while in bed no abscess noted CT noted. constipated. bowel regimen epistasis, now resolved. patient applies his own nasal packing intermittently The rectum is mildly distended with feces. What is probably a normal appendix is visualized. No small bowel distention or small bowel wall thi ckening. Ingested contrast reaches the proximal ascending colon. No free or loculated intraperitoneal gas or fluid is evident. The distal esophagus demonstrates a small hiatal hernia. The liver demonstrates slight surface nodularity. The common and proper hepatic artery is unusually ectatic. The liver demonstrates a few subcentimeter low-attenuation lesions which are too small to characterize. The pancreas, spleen, adrenals are unremarkable. The kidneys demonstrate bilateral cysts. The right kidney demonstrates a 4 mm calculus in an interpolar region calyx. The left kidney demonstrates an intermediate attenuation mass in the anterior upper pole which measures 18 mm in diameter. It demonstrates a few parapelvic cysts. It demonstrates one or more subcentimeter low-attenuation lesions which are too small to characterize as well. No retroperitoneal or mesenteric mass or adenopathy. There is unusual mural calcification extending into the lumen in the upstream inferior vena cava extending into the left common iliac vein. The bladder demonstrates marked wall thickening and trabeculation. No pelvic mass or adenopathy. There is mild edema of the bilateral flank subcutaneous fat. The included lung bases demonstrate posterior atelectatic changes. The bones demonstrate degenerative spondylosis changes. Impression: Soft tissue attenuation 18 mm mass in the left kidney. Although possibly a complicated cyst, neoplasm also possible. Sonography may be useful to clarify. Mild rectal distention with feces. Impaction possible. Correlate with clinical findings Slight hepatic surface nodularity, raises concern for cirrhosis. Unusual finding of very ectatic hepatic artery raises concern for portal hypertension. Unusual mural calcification in the upstream inferior vena cava extending into the left common iliac vein. Significance/etiology uncertain, could represent calcified chronic thrombus or possibly a calcified fibrin sheath is there is been a catheter at this location in the past Marked bladder wall thickening and trabeculation, likely chronic bladder outlet obstruction Mild edema of the bilateral flank subcutaneous fat Nonobstructive right renal calyceal calculus Other findings as noted, including subcentimeter probable liver cysts, small hiatal hernia,, bilateral renal cysts and too small to characterize subcentimeter low-attenuation lesions, left renal parapelvic cysts, degenerative spondylosis, basilar pulmonary atelectasis (2) Seizure (3) Weakness Ananda Ruvalcaba Aug 06, 2020 18:02
[2020-08-06] MEDS ORDERED: AMINOCAPROIC A500 MG ORAL (18:33)
[2020-08-06] MEDS ORDERED: MEDROL4 MG ORAL (18:33)
[2020-08-06] MEDS ORDERED: ACYCLOVIR400 MG ORAL (18:33)
[2020-08-06] MEDS ORDERED: ZOLPIDEM TARTRAT5 MG ORAL (18:33)
[2020-08-06] MEDS ORDERED: DOXYCYCLINE MO100 MG ORAL (18:33)
[2020-08-06] MEDS ORDERED: NINLARO4 MG PO (18:33)
--- NOTE | 2020-08-06 18:56 | Internal Med Progress Note ---
Subjective Date of Service: Aug 06, 2020 Physician Name Gustabo Sultana Attending Physician Martir Ross MD Current Medications Medications (Trade) Dose Ordered Sig/Angelique Route PRN Reason Start Time Stop Time Status Last Admin Dose Admin Acetaminophen (Tylenol) 650 mg Q6H PRN ORAL For Headache 08/02/20 18:00 09/01/20 17:59 Acetaminophen (Tylenol) 650 mg Q6H PRN ORAL Temp >100.5 08/02/20 18:00 09/01/20 17:59 Acetaminophen/ Hydrocodone Bitart ([place] 7.5/325) 1 tab Q6H PRN ORAL For Pain 08/02/20 19:45 08/09/20 19:44 08/06/20 05:25 Ascorbic Acid (Vitamin C) 500 mg TWICE A DAY ORAL 08/03/20 09:00 09/02/20 08:59 08/06/20 18:08 Cefazolin Sodium 1 gm/Dextrose 55 ml @ 110 mls/hr Q8HR@0200,1000,1800 IVPB 08/06/20 10:00 08/13/20 09:59 08/06/20 18:08 Duloxetine HCl (Cymbalta) 20 mg BID ORAL 08/03/20 09:00 11/01/20 08:59 08/06/20 18:10 Furosemide (Lasix) 20 mg DAILY IV 08/06/20 09:00 09/05/20 08:59 08/06/20 09:59 Ondansetron HCl (Zofran) 4 mg Q4H PRN IVP Nausea & Vomiting 08/02/20 18:00 09/01/20 17:59 Patient Own Medication (Patient's Own Med) 2 ea BID ORAL 08/05/20 13:45 09/04/20 13:44 08/06/20 18:08 Potassium Chloride (K-Dur) 40 meq DAILY ORAL 08/06/20 09:00 11/04/20 08:59 08/06/20 08:55 Zolpidem Tartrate (Ambien) 5 mg HSPRN PRN ORAL Insomnia 08/02/20 18:00 08/09/20 17:59 Allergies: Coded Allergies: No Known Allergies (Unverified , 08/02/20) ROS Limited/Unobtainable: No Constitutional: Reports: no symptoms HEENT: Reports: no symptoms Cardiovascular: Reports: no symptoms Respiratory: Reports: no symptoms Gastrointestinal/Abdominal: Reports: no symptoms Genitourinary: Reports: no symptoms Neurologic/Psychiatric: Reports: no symptoms Subjective 75 YO M admitted with left leg swelling. Now cellulitis left leg. Cover for Sammy Cole-Dr Ross. Episode of epistaxis due to heparin Objective Last Vital Signs Date Time Temp Pulse Resp B/P (MAP) Pulse Ox O2 Delivery O2 Flow Rate FiO2 08/06/20 16:00 97.9 75 18 98/58 (71) 100 08/06/20 09:00 Room Air Laboratory Tests Test 08/06/20 09:31 White Blood Count 6.8 K/UL (4.8-10.8) Red Blood Count 2.82 M/UL (4.70-6.10) L Hemoglobin 9.0 G/DL (14.2-18.0) L Hematocrit 29.5 % (42.0-52.0) L Mean Corpuscular Volume 105 FL (80-99) H Mean Corpuscular Hemoglobin 31.8 PG (27.0-31.0) H Mean Corpuscular Hemoglobin Concent 30.4 G/DL (32.0-36.0) L Red Cell Distribution Width 14.7 % (11.6-14.8) Platelet Count 497 K/UL (150-450) H Mean Platelet Volume 5.6 FL (6.5-10.1) L Neutrophils (%) (Auto) 68.2 % (45.0-75.0) Lymphocytes (%) (Auto) 8.5 % (20.0-45.0) L Monocytes (%) (Auto) 18.6 % (1.0-10.0) H Eosinophils (%) (Auto) 2.9 % (0.0-3.0) Basophils (%) (Auto) 1.9 % (0.0-2.0) Prothrombin Time 12.4 SEC (9.30-11.50) H Prothromb Time International Ratio 1.1 (0.9-1.1) Activated Partial Thromboplast Time 31 SEC (23-33) Sodium Level 142 MMOL/L (136-145) Potassium Level 3.6 MMOL/L (3.5-5.1) Chloride Level 106 MMOL/L (98-107) Carbon Dioxide Level 31 MMOL/L (21-32) Anion Gap 5 mmol/L (5-15) Blood Urea Nitrogen 12 mg/dL (7-18) Creatinine 0.8 MG/DL (0.55-1.30) Estimat Glomerular Filtration Rate > 60 mL/min (>60) Glucose Level 93 MG/DL (74-106) Calcium Level 8.6 MG/DL (8.5-10.1) Total Bilirubin 0.5 MG/DL (0.2-1.0) Aspartate Amino Transf (AST/SGOT) 20 U/L (15-37) Alanine Aminotransferase (ALT/SGPT) 17 U/L (12-78) Alkaline Phosphatase 71 U/L (46-116) Total Protein 5.4 G/DL (6.4-8.2) L Albumin 2.2 G/DL (3.4-5.0) L Globulin 3.2 g/dL Albumin/Globulin Ratio 0.7 (1.0-2.7) L Intake and Output 08/05/20 08/06/20 19:00 07:00 Intake Total 275 ml 575.000 ml Output Total 350 ml 600 ml Balance -75 ml -25.000 ml Intake Oral 300 ml IV Total 275 ml 275.000 ml Output Urine Total 350 ml 600 ml # Voids 2 # Bowel Movements 1 Objective Objective GENERAL: Awake and responsive, in no acute distress. HEAD AND NECK: Pupils are equal and reactive to light. Extraocular movements are intact. Neck was supple. No JVD. LUNGS: Good air entry with no wheezing or rales. HEART: S1, S2. Regular rhythm. Systolic ejection murmur was noted in the left sternal border. ABDOMEN: Soft, nondistended, and nontender. Positive bowel sounds. EXTREMITIES: No cyanosis or clubbing. Left lower extremity has +3 edema and less erythema . NEUROLOGIC: Cranial nerves II through XII were grossly normal. Motor is 5/5 in all extremities. Gait was not assessed. RECTAL/GENITOURINARY: Refused and deferred. PSYCHIATRIC: Mood and affect is intact. Assessment/Plan Assessment/Plan Assessment/Plan Assessment/Plan 1. Left lower extremity cellulitis. 2. Non-Hodgkin lymphoma. 3. Hereditary hemorrhagic telangiectasia (AV Malformation) 4. History of urinary retention / chronic bladder outlet obstruction requiring frequent catheterization. 5. Cardiac murmur. Plan: In medical floor. Follow up with the laboratory and cultures. Code status is Full Code. DVT prophylaxis; D/C heparin subcutaneous due to epistaxis secondary to Hereditary hemorrhagic telangiectasia Dr. Erasmo Segura = Infectious Disease. Abx: ancef and vancomycin IV CT scan of the abdomen and pelvis Noted. Lasix 20mg IV X 1 dose Duplex of lower extremity: Negative for evidence of lower extremity deep venous thrombosis bilaterally Incidental finding of left knee joint effusion and small complicated popliteal cyst. CT scan of the abdomen and pelvic: Soft tissue attenuation 18 mm mass in the left kidney. Although possibly a complicated cyst, neoplasm also possible. Sonography may be useful to clarify. Mild rectal distention with feces. Impaction possible. Correlate with clinical findings Slight hepatic surface nodularity, raises concern for cirrhosis. Unusual finding of very ectatic hepatic artery raises concern for portal hypertension. Unusual mural calcification in the upstream inferior vena cava extending into the left common iliac vein. Significance/etiology uncertain, could represent calcified chronic thrombus or possibly a calcified fibrin sheath is there is been a catheter at this location in the past Marked bladder wall thickening and trabeculation, likely chronic bladder outlet obstruction Mild edema of the bilateral flank subcutaneous fat Nonobstructive right renal calyceal calculus Other findings as noted, including subcentimeter probable liver cysts, small hiatal hernia,, bilateral renal cysts and too small to characterize subcentimeter low-attenuation lesions, left renal parapelvic cysts, degenerative spondylosis, basilar pulmonary atelectasis Aug 03, 2020 15:52 Gustabo Sultana MD Aug 06, 2020 18:56
--- NOTE | 2020-08-06 19:00 | NUR ---
NURSE NOTES: Received report from DEWAYNE Reyes. AAO x 4, on RA. Denies pain or discomfort. No nose bleeding noted. Pt states he has weak bladder and does self catheterization. LLE elevated with pillow. No labored breathing. IV site intact and patent. Bed locked, lowest position, alarm on, side rails up, call light within reach. Will continue to monitor.
[2020-08-07] VITALS: BP 95/66
[2020-08-07] MEDS: HYDROcodone/Acetamin 7.5/325 tab ORAL PRN (00:19)
[2020-08-07] MEDS: ceFAZolin sod 1 GM in D5W 55 ML IVPB SCH ×2 (01:24→01:26)
--- NOTE | 2020-08-07 01:29 | NUR ---
NURSE NOTES: Pt refused antibiotic and said I don't need it. Explained risks and benefits but still refused x 3
[2020-08-07 04:00] VITALS: BP 94/63
--- NOTE | 2020-08-07 06:04 | NUR ---
NURSE HAND-OFF: Important Events on Shift:refused abx Patient Status: stable Diet: reg Pending Orders: Pending Results/Labs: Pending MD notification: Latest Vital Signs: Temperature 97.2 , Pulse 64 , B/P 94 /63 , Respiratory Rate 24 , O2 SAT 99 , , O2 Flow Rate . Vital Sign Comment: [] Latest Go Fall Score: 60 Fall Risk: High Risk Safety Measures: Call light Within Reach, Bed Alarm Zone 1, Side Rails Side Rails x2, Bed position Low and Locked. Fall Precautions: Yellow Socks Door Sign Patient Fall Education Addendum: 08/07/20 at 0743 by CARYL BOND RN RN Report given to Ewa
[2020-08-07 06:38] LABS: HEMOGLOBIN 7.8 G/DL (14.2-18.0); MEAN CORPUSCULAR VOLUME 105 FL (80-99); PLATELET COUNT 447 K/UL (150-450); RED BLOOD COUNT 2.38 M/UL (4.70-6.10); RED CELL DISTRIBUTION WIDTH 15.6 % (11.6-14.8); WHITE BLOOD COUNT 5.6 K/UL (4.8-10.8)
[2020-08-07 07:11] LABS: ANION GAP 4 mmol/L (5-15); BLOOD UREA NITROGEN 11 mg/dL (7-18); CALCIUM 8.5 MG/DL (8.5-10.1); CARBON DIOXIDE 30 MMOL/L (21-32); CHLORIDE 108 MMOL/L (98-107); CREATININE 0.8 MG/DL (0.55-1.30); POTASSIUM 4.5 MMOL/L (3.5-5.1); SODIUM 142 MMOL/L (136-145)
--- NOTE | 2020-08-07 07:40 | NUR ---
NURSE NOTES: Patient alert x4; on room air, no sing of distress and shortness of breath; no sing of chest pain; patient upset, saying that his doctor's didn't see him; I explained to patient when doctor do rounds, gonna see him; patient also refused IV-antibiotics for PM shift; IV Left-Upper Arm, flushes well; per PM nurseMilagro, patient self catheterize; side rails up x2, breaks engaged, bed at lowest position; call light within reach; will keep monitoring.
[2020-08-07 08:00] VITALS: BP 100/50
[2020-08-07] MEDS: AMINOCAPROIC ACID 500 MG ORAL SCH (08:37)
[2020-08-07] MEDS: Ascorbic Acid 500mg tab ORAL SCH (08:38)
--- NOTE | 2020-08-07 08:41 | Infectious Diseases Prog Note ---
Assessment/Plan 75yo M with: Afebrile Normal WBC LLE swelling R/o LLE cellulitis 2/4 BCx NTD BLE US to r/o DVT neg CT A/P: No acute process. Unusual mural calcification in the upstream inferior vena cava extending into the left common iliac vein. Significance/etiology uncertain, could represent calcified chronic thrombus or possibly a calcified fibrin sheath is there is been a catheter at this location in the past R/o COVID, no resp cx 08/02 CXR: No acute process Cr 0.9 PMH: Waldenstrom's B cell lymphoma HHT Plan: Cont cefazolin #2/3 (abx d#6/7) for possible resolving cellulitis Will write for single dose of CTX to cover him for 24hrs so can d/c today without any more abx OK to d/c from ID standpoint Elevate LLE on 2-3 pillows to help w/ drainage of edema Swelling less likely 2/2 ongoing infection given lack of erythema, pain and leukocytosis, would evaluate for non-infectious reasons for worsening LLE edema. CT A/P with "Unusual mural calcification in the upstream inferior vena cava extending into the left common iliac vein." Could this be contributing to edema? 08/06 SP CTX/vanco #4 Monitor CBC/CMP Monitor temp curve, hemodynamics Monitor resp status D/w RN Thank you for this consult. [facility] will continue to follow. Subjective Allergies: Coded Allergies: No Known Allergies (Unverified , 08/02/20) AF NAD on RA WBC 5.6 Improved swelling in LLE Possibly home today after blood transfusion per pt Objective Last 24 Hour Vital Signs Date Time Temp Pulse Resp B/P (MAP) Pulse Ox O2 Delivery O2 Flow Rate FiO2 08/07/20 08:00 97.1 77 21 100/50 (67) 99 08/07/20 04:00 97.2 64 24 94/63 (73) 99 08/07/20 00:00 97.3 76 20 95/66 (76) 96 08/06/20 20:57 Room Air 08/06/20 20:00 98.0 89 19 105/45 (65) 98 08/06/20 16:00 97.9 75 18 98/58 (71) 100 08/06/20 12:00 98.4 82 18 108/46 (66) 96 08/06/20 09:00 Room Air 08/06/20 09:00 102/46 (64) Height (Feet): 5 Height (Inches): 6.00 Weight (Pounds): 155 Gen: NAD HEENT: NCAT Pulm: BL chest rise Abd: Non-distended Ext: LL w/ diffuse 2+ pitting edema up to mid thigh, w/ mild erythema of the skin in dependent areas of edema, non-TTP - overall swelling mildly improved from day prior Skin: No visible rashes Neuro: Awake, alert, interactive Laboratory Tests Test 08/06/20 09:31 08/07/20 05:15 White Blood Count 6.8 K/UL (4.8-10.8) 5.6 K/UL (4.8-10.8) Red Blood Count 2.82 M/UL (4.70-6.10) L 2.38 M/UL (4.70-6.10) L Hemoglobin 9.0 G/DL (14.2-18.0) L 7.8 G/DL (14.2-18.0) L Hematocrit 29.5 % (42.0-52.0) L 25.0 % (42.0-52.0) L Mean Corpuscular Volume 105 FL (80-99) H 105 FL (80-99) H Mean Corpuscular Hemoglobin 31.8 PG (27.0-31.0) H 32.8 PG (27.0-31.0) H Mean Corpuscular Hemoglobin Concent 30.4 G/DL (32.0-36.0) L 31.1 G/DL (32.0-36.0) L Red Cell Distribution Width 14.7 % (11.6-14.8) 15.6 % (11.6-14.8) H Platelet Count 497 K/UL (150-450) H 447 K/UL (150-450) Mean Platelet Volume 5.6 FL (6.5-10.1) L 5.7 FL (6.5-10.1) L Neutrophils (%) (Auto) 68.2 % (45.0-75.0) % (45.0-75.0) Lymphocytes (%) (Auto) 8.5 % (20.0-45.0) L % (20.0-45.0) Monocytes (%) (Auto) 18.6 % (1.0-10.0) H % (1.0-10.0) Eosinophils (%) (Auto) 2.9 % (0.0-3.0) % (0.0-3.0) Basophils (%) (Auto) 1.9 % (0.0-2.0) % (0.0-2.0) Prothrombin Time 12.4 SEC (9.30-11.50) H Prothromb Time International Ratio 1.1 (0.9-1.1) Activated Partial Thromboplast Time 31 SEC (23-33) Sodium Level 142 MMOL/L (136-145) 142 MMOL/L (136-145) Potassium Level 3.6 MMOL/L (3.5-5.1) 4.5 MMOL/L (3.5-5.1) Chloride Level 106 MMOL/L (98-107) 108 MMOL/L (98-107) H Carbon Dioxide Level 31 MMOL/L (21-32) 30 MMOL/L (21-32) Anion Gap 5 mmol/L (5-15) 4 mmol/L (5-15) L Blood Urea Nitrogen 12 mg/dL (7-18) 11 mg/dL (7-18) Creatinine 0.8 MG/DL (0.55-1.30) 0.8 MG/DL (0.55-1.30) Estimat Glomerular Filtration Rate > 60 mL/min (>60) > 60 mL/min (>60) Glucose Level 93 MG/DL (74-106) 88 MG/DL (74-106) Calcium Level 8.6 MG/DL (8.5-10.1) 8.5 MG/DL (8.5-10.1) Total Bilirubin 0.5 MG/DL (0.2-1.0) Aspartate Amino Transf (AST/SGOT) 20 U/L (15-37) Alanine Aminotransferase (ALT/SGPT) 17 U/L (12-78) Alkaline Phosphatase 71 U/L (46-116) Total Protein 5.4 G/DL (6.4-8.2) L Albumin 2.2 G/DL (3.4-5.0) L Globulin 3.2 g/dL Albumin/Globulin Ratio 0.7 (1.0-2.7) L Neutrophils % (Manual) Pending Lymphocytes % (Manual) Pending Platelet Estimate Pending Platelet Morphology Pending Current Medications Medications (Trade) Dose Ordered Sig/Angelique Route PRN Reason Start Time Stop Time Status Last Admin Dose Admin Acetaminophen (Tylenol) 650 mg Q6H PRN ORAL For Headache 08/02/20 18:00 09/01/20 17:59 Acetaminophen (Tylenol) 650 mg Q6H PRN ORAL Temp >100.5 08/02/20 18:00 09/01/20 17:59 Acetaminophen/ Hydrocodone Bitart ([place] 7.5/325) 1 tab Q6H PRN ORAL For Pain 08/02/20 19:45 08/09/20 19:44 08/07/20 00:19 Ascorbic Acid (Vitamin C) 500 mg TWICE A DAY ORAL 08/03/20 09:00 09/02/20 08:59 08/07/20 08:38 Cefazolin Sodium 1 gm/Dextrose 55 ml @ 110 mls/hr Q8HR@0200,1000,1800 IVPB 08/06/20 10:00 08/13/20 09:59 08/06/20 18:08 Duloxetine HCl (Cymbalta) 20 mg BID ORAL 08/03/20 09:00 11/01/20 08:59 08/07/20 08:38 Furosemide (Lasix) 20 mg DAILY IV 08/06/20 09:00 09/05/20 08:59 08/07/20 08:38 Ondansetron HCl (Zofran) 4 mg Q4H PRN IVP Nausea & Vomiting 08/02/20 18:00 09/01/20 17:59 Patient Own Medication (Patient's Own Med) 2 ea BID ORAL 08/05/20 13:45 09/04/20 13:44 08/07/20 08:37 Potassium Chloride (K-Dur) 40 meq DAILY ORAL 08/06/20 09:00 11/04/20 08:59 08/07/20 08:38 Zolpidem Tartrate (Ambien) 5 mg HSPRN PRN ORAL Insomnia 08/02/20 18:00 08/09/20 17:59 Kathleen Dunaway M.D. Aug 07, 2020 08:41
--- NOTE | 2020-08-07 11:57 | Surgery Progress Note ---
Surgery Progress Note Subjective Additional Comments Afebrile, hemodynamic stable, cultures negative, ID input appreciated. States he feels better. Hemoglobin dropped today. Repeat CBC in afternoon. HENRY uribe. Objective Last 24 Hour Vital Signs Date Time Temp Pulse Resp B/P (MAP) Pulse Ox O2 Delivery O2 Flow Rate FiO2 08/07/20 09:00 Room Air 08/07/20 08:00 97.1 77 21 100/50 (67) 99 08/07/20 04:00 97.2 64 24 94/63 (73) 99 08/07/20 00:00 97.3 76 20 95/66 (76) 96 08/06/20 20:57 Room Air 08/06/20 20:00 98.0 89 19 105/45 (65) 98 08/06/20 16:00 97.9 75 18 98/58 (71) 100 08/06/20 12:00 98.4 82 18 108/46 (66) 96 I&O Intake and Output 08/06/20 08/07/20 19:00 07:00 Intake Total 450 ml Output Total 600 ml 400 ml Balance -150 ml -400 ml Intake Oral 450 ml Output Urine Total 600 ml 400 ml # Voids 2 2 # Bowel Movements 2 Cardiovascular: RSR Respiratory: clear Abdomen: soft, flat, non-tender, present bowel sounds, non-distended Extremities: no edema, no tenderness, no cyanosis Laboratory Tests Test 08/07/20 05:15 White Blood Count 5.6 K/UL (4.8-10.8) Red Blood Count 2.38 M/UL (4.70-6.10) L Hemoglobin 7.8 G/DL (14.2-18.0) L Hematocrit 25.0 % (42.0-52.0) L Mean Corpuscular Volume 105 FL (80-99) H Mean Corpuscular Hemoglobin 32.8 PG (27.0-31.0) H Mean Corpuscular Hemoglobin Concent 31.1 G/DL (32.0-36.0) L Red Cell Distribution Width 15.6 % (11.6-14.8) H Platelet Count 447 K/UL (150-450) Mean Platelet Volume 5.7 FL (6.5-10.1) L Neutrophils (%) (Auto) % (45.0-75.0) Lymphocytes (%) (Auto) % (20.0-45.0) Monocytes (%) (Auto) % (1.0-10.0) Eosinophils (%) (Auto) % (0.0-3.0) Basophils (%) (Auto) % (0.0-2.0) Differential Total Cells Counted 100 Neutrophils % (Manual) 65 % (45-75) Lymphocytes % (Manual) 14 % (20-45) L Monocytes % (Manual) 17 % (1-10) H Eosinophils % (Manual) 4 % (0-3) H Basophils % (Manual) 0 % (0-2) Band Neutrophils 0 % (0-8) Platelet Estimate Adequate Platelet Morphology Normal Polychromasia 1+ Hypochromasia 1+ Anisocytosis 1+ Macrocytosis 2+ Sodium Level 142 MMOL/L (136-145) Potassium Level 4.5 MMOL/L (3.5-5.1) Chloride Level 108 MMOL/L (98-107) H Carbon Dioxide Level 30 MMOL/L (21-32) Anion Gap 4 mmol/L (5-15) L Blood Urea Nitrogen 11 mg/dL (7-18) Creatinine 0.8 MG/DL (0.55-1.30) Estimat Glomerular Filtration Rate > 60 mL/min (>60) Glucose Level 88 MG/DL (74-106) Calcium Level 8.5 MG/DL (8.5-10.1) Plan Problems: (1) Cellulitis of leg, left Assessment & Plan: Cellulitis left leg on abx ortho eval outpatient noted no n/v ambulatory feels better cont abx keep elevated while in bed no abscess noted CT noted. constipated. bowel regimen epistasis, now resolved. patient applies his own nasal packing intermittently The rectum is mildly distended with feces. What is probably a normal appendix is visualized. No small bowel distention or small bowel wall thickening. Ingested contrast reaches the proximal ascending colon. No free or loculated intraperitoneal gas or fluid is evident. The distal esophagus demonstrates a small hiatal hernia. The liver demonstrates slight surface nodularity. The common and proper hepatic artery is unusually ectatic. The liver demonstrates a few subcentimeter low-attenuation lesions which are too small to characterize. The pancreas, spleen, adrenals are unremarkable. The kidneys demonstrate bilateral cysts. The right kidney demonstrates a 4 mm calculus in an interpolar region calyx. The left kidney demonstrates an intermediate attenuation mass in the anterior upper pole which measures 18 mm in diameter. It demonstrates a few parapelvic cysts. It demonstrates one or more subcentimeter low-attenuation lesions which are too small to characterize as well. No retroperitoneal or mesenteric mass or adenopathy. There is unusual mural calcification extending into the lumen in the upstream inferior vena cava extending into the left common iliac vein. The bladder demonstrates marked wall thickening and trabeculation. No pelvic mass or adenopathy. There is mild edema of the bilateral flank subcutaneous fat. The included lung bases demonstrate posterior atelectatic changes. The bones demonstrate degenerative spondylosis changes. Impression: Soft tissue attenuation 18 mm mass in the left kidney. Although possibly a complicated cyst, neoplasm also possible. Sonography may be useful to clarify. Mild rectal distention with feces. Impaction possible. Correlate with clinical findings Slight hepatic surface nodularity, raises concern for cirrhosis. Unusual finding of very ectatic hepatic artery raises concern for portal hypertension. Unusual mural calcification in the upstream inferior vena cava extending into the left common iliac vein. Significance/etiology uncertain, could represent calcified chronic thrombus or possibly a calcified fibrin sheath is there is been a catheter at this location in the past Marked bladder wall thickening and trabeculation, likely chronic bladder outlet obstruction Mild edema of the bilateral flank subcutaneous fat Nonobstructive right renal calyceal calculus Other findings as noted, including subcentimeter probable liver cysts, small hiatal hernia,, bilateral renal cysts and too small to characterize subcentimeter low-attenuation lesions, left renal parapelvic cysts, degenerative spondylosis, basilar pulmonary atelectasis (2) Seizure (3) Weakness Ananda Ruvalcaba Aug 07, 2020 11:57
[2020-08-07 12:00] VITALS: BP 134/64
[2020-08-07] MEDS ORDERED: cefTRIAXone 1 GM in D5W 55 ML IVPB SCH (12:00)
--- NOTE | 2020-08-07 12:24 | NUR ---
NURSE NOTES: Patient refused to take Ceftriaxone 1gm, the risk and benefits explained to this patient; still patient refused to take this antibiotics.
--- NOTE | 2020-08-07 12:25 | NUR ---
NURSE NOTES: I received order from MD Hardwick to repeat CBC; order carried out as order given;
[2020-08-07] MEDS ORDERED: FUROSEMIDE20 M1 ORAL (14:30)
[2020-08-07 14:33] LABS: HEMATOCRIT 26.6 % (42.0-52.0); HEMOGLOBIN 7.9 G/DL (14.2-18.0); MEAN CORPUSCULAR VOLUME 108 FL (80-99); PLATELET COUNT 481 K/UL (150-450); RED BLOOD COUNT 2.46 M/UL (4.70-6.10); RED CELL DISTRIBUTION WIDTH 15.4 % (11.6-14.8); WHITE BLOOD COUNT 6.4 K/UL (4.8-10.8)
--- NOTE | 2020-08-07 14:57 | NUR ---
NURSE NOTES: The repeated CBC for Hgb 7.9; MD Hardwick is aware of this result; no order received;
--- NOTE | 2020-08-07 14:58 | NUR ---
NURSE NOTES: MD Ross is aware of Hgb 7.9; waiting for order;
--- NOTE | 2020-08-07 15:22 | NUR ---
CASE MANAGEMENT:REVIEW 08/07/20 SI: LLE CELLULITIS 97.9 67 21 134/64 99% ON RA H/H-7.9/26.6 IS: IV LASIX QD K-DUR PO QD CYMBALTA PO BID VIT C PO BID NORCO PO Q6HRS PRN IV ROCEPHIN X1~ PATIENT REFUSED : MED.SURG STATUS DCP: FROM HOME
[2020-08-07 16:00] VITALS: BP 110/50
--- NOTE | 2020-08-07 17:01 | NUR ---
NURSE NOTES: risk control field representative spoke to Dr. Ross due to primary RN was busy and unable to flower buncher or picker the phone. RN informed Dr. Ross that patient wants to leave AMA, DR. Ross is aware of hgb of 7.9 and patient refused blood transfusion. Dr. Ross ordered to discharge patient not AMA. RN asked Dr. Ross twice and verified.
[2020-08-07] MEDS ORDERED: NS 500ML ONE (17:19)
--- NOTE | 2020-08-07 17:54 | NUR ---
NURSE NOTES: Primary nurse called to MD Ross to report the Hgb 7.9 report; MD Ross gave the order to transfuse 1 Unit PRBC and discharge patient; RN went to patient's room to get the consent for Blood transfusion, however, patient said, "Is not going to wait for blood transfusion and wants to leave now. My is on the way from [place] and am not going to wait." I called MD Ross's number, MD said call to my office, currently am with patient. I called MD Ross office and explain the situation of the person who in MD office. In the mean time, I went to pharmacy to get patien't own medication and also explained to patient's regarding the situation. I notified the situation to charge nurse, Sean. I started patient signing up AMA paper and belonging lists; in the mean time when I come out of patient room I was told by charge nurse that MD Ross gave a discharge order. I went to patient and explained that charge nurse received discharge order and to given to few minutes to work on the discharge paper works and also to call to his to explain the situation. patient agreed to wait and paper works prepared by primary nurse. Patient signed the discharge home paper, belonging lists, also patient's own medications also given back to patient. patient teaching provided regarding the diagnosis. patient scorted to the lobby by wheelchair accompanied by primary nurse, VERNA Lopez and unite ward secretarysuraj Nolan. Patient stable upon discharge. No sing of bleeding and no sing of dizziness. IV access and name tag removed upon discharge.
--- NOTE | 2020-08-08 02:02 | Cardiology Report ---
APPROVED REPORT EKG Measurement Heart [id number] <Conclusion> Normal sinus rhythm Normal ECG
--- NOTE | 2020-08-08 07:43 | Internal Med Progress Note ---
Subjective Date of Service: Aug 07, 2020 Physician Name Martir Ross Attending Physician Martir Ross MD Allergies: Coded Allergies: No Known Allergies (Unverified , 08/02/20) Subjective awake, alert, responsive, denies any chest pain or shortness of breath. Hgb: 7.8 Objective Last Vital Signs Date Time Temp Pulse Resp B/P (MAP) Pulse Ox O2 Delivery O2 Flow Rate FiO2 08/07/20 16:00 97.9 78 20 110/50 (70) 97 08/07/20 09:00 Room Air Laboratory Tests Test 08/07/20 14:20 White Blood Count 6.4 K/UL (4.8-10.8) Red Blood Count 2.46 M/UL (4.70-6.10) L Hemoglobin 7.9 G/DL (14.2-18.0) L Hematocrit 26.6 % (42.0-52.0) L Mean Corpuscular Volume 108 FL (80-99) H Mean Corpuscular Hemoglobin 32.3 PG (27.0-31.0) H Mean Corpuscular Hemoglobin Concent 29.8 G/DL (32.0-36.0) L Red Cell Distribution Width 15.4 % (11.6-14.8) H Platelet Count 481 K/UL (150-450) H Mean Platelet Volume 5.2 FL (6.5-10.1) L Neutrophils (%) (Auto) % (45.0-75.0) Lymphocytes (%) (Auto) % (20.0-45.0) Monocytes (%) (Auto) % (1.0-10.0) Eosinophils (%) (Auto) % (0.0-3.0) Basophils (%) (Auto) % (0.0-2.0) Differential Total Cells Counted 100 Neutrophils % (Manual) 76 % (45-75) H Lymphocytes % (Manual) 3 % (20-45) L Monocytes % (Manual) 9 % (1-10) Eosinophils % (Manual) 0 % (0-3) Basophils % (Manual) 4 % (0-2) H Band Neutrophils 8 % (0-8) Platelet Estimate Increased H Platelet Morphology Normal Polychromasia 1+ Hypochromasia 2+ Anisocytosis 1+ Macrocytosis 2+ Objective GENERAL: Awake and responsive, in no acute distress. HEAD AND NECK: Pupils are equal and reactive to light. Extraocular movements are intact. Neck was supple. No JVD. LUNGS: Good air entry with no wheezing or rales. HEART: S1, S2. Regular rhythm. Systolic ejection murmur was noted in the left sternal border. ABDOMEN: Soft, nondistended, and nontender. Positive bowel sounds. EXTREMITIES: No cyanosis or clubbing. Left lower extremity has +2 edema and no erythema . NEUROLOGIC: Cranial nerves II through XII were grossly normal. Motor is 5/5 in all extremities. Gait was not assessed. RECTAL/GENITOURINARY: Refused and deferred. PSYCHIATRIC: Mood and affect is intact. Assessment/Plan Assessment/Plan 1. Left lower extremity cellulitis. 2. Non-Hodgkin lymphoma. 3. Hereditary hemorrhagic telangiectasia (AV Malformation) 4. History of urinary retention / chronic bladder outlet obstruction requiring frequent catheterization. 5. Cardiac murmur. Plan: In medical floor. Follow up with the laboratory and cultures. Code status is Full Code. DVT prophylaxis, heparin subcutaneous. Dr. Erasmo Segura from Infectious Disease. Abx: Ancef IV Discussed with the Patient and daughter extensively over the phone with regard to plan of care and possible blood transfusion. Lasix 20mg daily DC Home today. Duplex of lower extremity: Negative for evidence of lower extremity deep venous thrombosis bilaterally Incidental finding of left knee joint effusion and small complicated popliteal cyst. CT scan of the abdomen and pelvic: Soft tissue attenuation 18 mm mass in the left kidney. Although possibly a complicated cyst, neoplasm also possible. Sonography may be useful to clarify. Mild rectal distention with feces. Impaction possible. Correlate with clinical findings Slight hepatic surface nodularity, raises concern for cirrhosis. Unusual finding of very ectatic hepatic artery raises concern for portal hypertension. Unusual mural calcification in the upstream inferior vena cava extending into the left common iliac vein. Significance/etiology uncertain, could represent calcified chronic thrombus or possibly a calcified fibrin sheath is there is been a catheter at this location in the past Marked bladder wall thickening and trabeculation, likely chronic bladder outlet obstruction Mild edema of the bilateral flank subcutaneous fat Nonobstructive right renal calyceal calculus Other findings as noted, including subcentimeter probable liver cysts, small hiatal hernia,, bilateral renal cysts and too small to characterize subcentimeter low-attenuation lesions, left renal parapelvic cysts, degenerative spondylosis, basilar pulmonary atelectasis Martir Ross MD Aug 08, 2020 07:43
--- NOTE | 2020-08-08 10:45 | Cardiology Report ---
APPROVED REPORT EXAM: Two-dimensional and M-mode echocardiogram with Doppler and color Doppler. M-Mode DIMENSIONS IVSd0.9 (0.7-1.1cm)Left Atrium (MM)4.4 (1.6-4.0cm) LVDd5.1 (3.5-5.6cm)Aortic Root4.0 (2.0-3.7cm) PWd1.4 (0.7-1.1cm)Aortic Cusp Exc.1.1 (1.5-2.0cm) IVSs1.4 cmEPSS0.9 (>1.0cm) LVDs3.0 (2.5-4.0cm) PWs1.7 cm <Conclusion> Normal left ventricular chamber size, systolic function and wall motion. Left ventricular ejection fraction estimated to be 65%. No evidence of left ventricular hypertrophy. No evidence of pericardial effusion. Right cardiac chamber sizes are within normal limits. Mild left atrial enlargement. Aortic valve calcification with decreased cusp excursion c/w severe aortic stenosis. Thickened mitral valve leaflets with normal excursion. Mild aortic root calcification. Pulmonic valve not well visualized. Normal tricuspid valve structure. IVC is normal in size with physiological collapse. A color flow and spectral Doppler study was performed and revealed: Mild aortic insufficiency. peak aortic valve gradient of 61 mmHg and a mean of 31 mmHg. Aortic valve area 0.9 cm2 calculated by continuity equation. Trace mitral regurgitation. Mitral diastolic velocities suggest reduced left ventricular relaxation c/w diastolic dysfunction(Grade I). Mild tricuspid regurgitation. Tricuspid systolic velocities suggests peak right ventricular systolic pressure of 45 mmHg, consistent with moderate pulmonary hypertension. Mild Pulmonic regurgitation present.
--- NOTE | 2020-08-10 13:30 | Discharge Summary ---
Discharge Summary Discharge Summary _ Date of admission: 08/02/2020 Date of discharge: 08/07/[address] Ross History of Present Illness and Brief Hospital Course Mr. Cole is a 75-year-old male with history of COPD, HHT, and non-Hodgkin lymphoma, who presented to the ED for evaluation of progressively worsening left lower extremity pain and swelling x2 weeks. Patient was reported to be treated for gout without improvement. Venous duplex ultrasound of lower extremities was negative for DVT. He reported that he also had an MRI of his leg with the results pending by the time of presentation. He was seen by an orthopedist the day of presentation who suspected cellulitis and recommended the patient to go to ER. Patient denied any fever or history of cellulitis. Chest x-ray was negative for acute disease. In the ER, patient was given broad-spectrum antibiotics and was admitted to the hospital for further management. Patient was initially started on ceftriaxone and vancomycin for empiric treatment of cellulitis. The blood cultures were negative for growth. The antibiotics were switched to cefazolin for possible resolving cellulitis. Patient's legs were elevated to help with drainage of edema. Patient also received Lasix. The swelling was less likely secondary to ongoing infection given lack of erythema, pain and leukocytosis. CT abdomen/pelvis was notable for unusual mural calcification in the upstream inferior vena cava extending into the left common iliac vein. This could have contributed to edema. Patient was medically stable for discharge and was discharged home on antibiotics for possible resolving cellulitis. Consultants: Infectious disease Dr. Dunaway Surgery Dr. Ruvalcaba Discharge Condition Improved and stable Final diagnoses Left lower extremity cellulitis History of [place] Danette's B-cell lymphoma HHT Hereditary hemorrhagic telangiectasia (AV malformation) History of urinary retention/chronic bladder outlet obstruction requiring luke quent catheterization Cardiac murmur I have been assigned to dictate discharge summary for this account. I was not involved in the patient's management Paul Marcus Aug 10, 2020 13:30
== END 2020-08-07 17:20 | disposition home or self-care (01) | DRG 603 ==
LOC: EMR 10:50 → 4E 12:40 → EDBEDREQ 14:07 → 4E 08-07 12:12
DX: L03.116 Cellulitis of left lower limb (principal); C85.90 Non-Hodgkin lymphoma, unspecified, unspecified site; I78.0 Hereditary hemorrhagic telangiectasia; R56.9 Unspecified convulsions; R01.1 Cardiac murmur, unspecified; J44.9 Chronic obstructive pulmonary disease, unspecified; N32.0 Bladder-neck obstruction; R33.8 Other retention of urine
CPT/HCPCS: 36415; 71045; 74177; 80048; 80053; 80202; 82962; 83605; 83735; 83880; 84100; 84484; 85007; 85025; 85610; 85730; 87040; 93005; 93306; 93970; 96365; 96367; 99285; J8499